=== PATIENT | female | born 1930 | race American Indian/Alaskan Native ===

== ENCOUNTER 2017-01-29 03:48 | Inpatient (IN) | payer MEDICARE, MEDICAID ==
[2017-01-29] MEDS ORDERED: HALDOL IM ONE (04:24)
--- NOTE | 2017-01-29 04:30 | Emergency Department Report ---
HPI - General Chief Complaint: Anxiety Time Seen by Provider: 01/29/17 04:24 - HPI HPI: Daughter reports that patient has been very agitated last night and the day before. Patient with history of dementia, nonverbal, G-tube dependent, has been having fevers and it has been more agitated for the past 2 nights. ED Past Medical Hx - Past Medical History Hx Hypertension: Yes Hx Asthma: No Hx Dementia: Yes Hx HIV: No - Social History Smoking Status: Unknown if ever smoked - Medications Home Medications: Home Medications Medication Instructions Recorded Confirmed Last Taken Type Digoxin [Digox] 1 tab FEEDTUBE DAILY 10/16/13 01/09/16 01/08/16 History Metoprolol [Lopressor TAB] 50 mg FEEDTUBE BID 10/16/13 01/09/16 01/08/16 History Quetiapine Fumarate [SEROquel] 25 mg FEEDTUBE DAILY 10/16/13 01/09/16 01/08/16 History Rosuvastatin (Nf) [Crestor] 1 tab FEEDTUBE DAILY 10/16/13 01/09/16 01/08/16 History amLODIPine [Norvasc] 10 mg FEEDTUBE DAILY 10/16/13 01/09/16 01/08/16 History LORazepam 0.5 mg FEEDTUBE BID 05/25/15 01/09/16 05/30/15 22:00 History Aspirin BABY CHEW TAB 81 mg PO DAILY 01/09/16 01/09/16 01/08/16 History Levothyroxine 50 meq FEEDTUBE DAILY 01/09/16 01/09/16 01/08/16 History Namenda 10 mg PO DAILY 01/09/16 01/09/16 01/08/16 History Vitamin C 1 tab FEEDTUBE DAILY 01/09/16 01/09/16 01/08/16 History ED Review of Systems ROS: Stated complaint: AMS Other details as noted in HPI Physical Exam - Physical Exam Vital Signs: Vital Signs 01/29/17 04:21 Temperature 98.5 F Pulse Rate 134 H Respiratory 43 H Rate O2 Sat by Pulse 96 Oximetry Physical Exam: General appearance: no acute distress, other (chronically ill) HEENT: PERRLA Lungs: Clear to auscultation Heart: Normal S1, Normal S2, Other (irregular rhythm) Gastrointestinal: no tenderness, no distended, no hepatomegaly, no splenomegaly , other (indwelling 20 Fr traction-removable G tube old and worn, stoma free from stigmata of leakage, drainage or infection) Neurological: Other (eyes open, no speech) ED Course Vital Signs 01/29/17 04:21 Temperature 98.5 F Pulse Rate 134 H Respiratory 43 H Rate O2 Sat by Pulse 96 Oximetry ED Medical Decision Making - Lab Data Result diagrams: 01/29/17 04:50 01/29/17 04:50 Critical care attestation.: If time is entered above; I have spent that time in minutes in the direct care of this critically ill patient, excluding procedure time. ED Disposition Clinical Impression: Aspiration pneumonia, UTI (urinary tract infection) Disposition: DC-09 OP ADMIT IP TO THIS HOSP Is pt being admited?: Yes Does the pt Need Aspirin: No Condition: Stable Instructions: Bacterial Pneumonia (ED) Referrals: PRIMARY CARE, [Primary Care Provider] - 3-5 Days
[2017-01-29] MEDS ORDERED: BENADRYL IM ONE (04:45)
[2017-01-29 05:11] LABS: Basophils % (Auto) 0.2 % (0.0-1.8); Mean Corpuscular HGB Conc 30 % (30-34); Mean Corpuscular Volume 83 fl (79-97); Platelet Count 176 K/mm3 (140-440); Red Blood Count 5.59 M/mm3 (3.65-5.03); White Blood Count 12.7 K/mm3 (4.5-11.0)
[2017-01-29 05:12] LABS: Hematocrit 46.4 % (30.3-42.9); Hemoglobin 13.7 gm/dl (10.1-14.3); Mean Corpuscular Hemoglobin 25 pg (28-32); Red Cell Distribution Width 20.7 % (13.2-15.2)
[2017-01-29 05:28] LABS: Alanine Aminotransferase 190 units/L (7-56); Albumin 3.2 g/dL (3.9-5); Albumin/Globulin Ratio 0.8 %; Alkaline Phosphatase 169 units/L (35-129); Anion Gap 26 mmol/L; BUN/Creatinine Ratio 68.33; Blood Urea Nitrogen 41 mg/dL (7-17); Calcium 9.3 mg/dL (8.4-10.2); Carbon Dioxide 20 mmol/L (22-30); Chloride 102.5 mmol/L (98-107); Glucose 245 mg/dL (65-100); Potassium 4.5 mmol/L (3.6-5.0); Sodium 144 mmol/L (137-145); Total Protein 7.4 g/dL (6.3-8.2)
[2017-01-29] MEDS ORDERED: NACL 0.9% 1000 ML 1,000 ML IV ONE (06:24)
[2017-01-29] MEDS ORDERED: ROCEPHIN IV ONE (06:24)
[2017-01-29 06:48] LABS: Bacteria,Urine 4+ /HPF (Negative); Bilirubin,Urine NEG (Negative); Blood,Urine LG (Negative); Ketones,Urine NEG (Negative); Leukocyte Esterase,Urine LG (Negative); Nitrite,Urine NEG (Negative)
[2017-01-29 06:57] LABS: Protein,Urine >500 mg/dL (Negative); RBC,Urine > 182.0 /HPF (0.0-6.0); WBC,Urine > 182.0 /HPF (0.0-6.0)
[2017-01-29] MEDS ORDERED: ROCEPHIN/NS 2 GM/100 ML 2 GM/100 ML BAG IV ONE (07:00)
[2017-01-29] MEDS ORDERED: SIMPLE SYRUP FEEDTUBE PRN ×4 (07:15→14:37)
[2017-01-29] MEDS ORDERED: SODIUM BICARBONATE FEEDTUBE PRN ×2 (07:15→14:37)
[2017-01-29] MEDS ORDERED: PANCREAZE DR 10,500 UNIT FEEDTUBE PRN ×2 (07:15→14:37)
[2017-01-29] MEDS ORDERED: DULCOLAX PR PRN (07:15)
--- NOTE | 2017-01-29 07:27 | Admit Criteria Form ---
Admission Criteria Documentation: GENERAL ADMISSION CRITERIA (Place 'X' for any and all applicable criteria): Admission is indicated for ANY ONE of the following: [X ]I. Hemodynamic instability as indicated by ANY ONE of the following(1)(2 )(3)(4)(5): [ ]a) Vital sign abnormality not readily corrected by appropriate treatment within 12 to 24 hours indicated by ANY ONE of the following: [ ]i) Hypotension [ ]ii) Symptomatic Tachycardia unresponsive to treatment (eg , analgesia, fluids, sedation as indicated) [ ]iii) Orthostatic vital sign changes unresponsive to treatment (eg, fluids) [X ]b) Vital sign abnormality that is severe indicated by ANY ONE of the following: [X ]i) Inadequate perfusion indicated by ANY ONE of the following: [ X]1) Lactic acidosis (greater than 2 mmol/L) [ ]2) New abnormal capillary refill (greater than 3 seconds) [ ]3) Other metabolic acidosis (arterial pH less than 7.35) not otherwise explained [ ]4) Reduced urine output [ ]5) Altered mental status [ ]6) Myocardial Ischemia [ ]v) Mean arterial pressure[A] less than 60 mm Hg [ ]vi) Mean arterial pressure[A] less than 70 mm Hg after 30 minutes of appropriate treatment (eg, fluid resuscitation) [ ]vii) IV inotropic or vasopressor medication required to maintain adequate blood pressure or perfusion [ ]viii) Sustained heart rate greater than 120 beats per minute in adult or child 6 years or older[B]] [ ]II. Hypertension requiring inpatient treatment as indicated by ANY ONE of the following(6)(7)(8): [ ]a) SBP greater than 220 mm Hg or DBP greater than 120 mm Hg despite treatment [ ]b) SBP greater than 140 mm Hg or DBP greater than 100 mm Hg with evidence of acute end organ damage as indicated by ANY ONE of the following: [ ]i) Encephalopathy [ ]ii) Acute renal failure as indicated by new onset of ANY ONE of the following(9)(10)(11)(12)(13): [ ]1) A 3-fold rise in serum creatinine from baseline [ ]2) Serum creatinine greater than 4 mg/dL ( 354 micromoles/L) with acute rise greater than 0.5 mg/dL (44.2 micromoles/L) [ ]3) Reduction of more than 75% in estimated glomerular filtration rate from baseline [ ]4) Estimated glomerular filtration rate less than 35 mL/min/1.73m2 (0.59 mL/sec/1.73m2) in child up to 18 years of age [ ]5) Cessation of urine output indicated by ALL of the following: [ ]A. Adequate volume status [ ]B. Inadequate urine output as indicated by ANY ONE of the following: [ ]a. Urine output less than 0.3 mL/kg/hr for 24 hours [ ]b. Anuria (urine output less than 0.1 mL/kg/hr) for 12 hours [ ]iii) Aortic dissection [ ]iv) Myocardial ischemia [ ]v) Left ventricular heart failure [ ]vi) Retinal hemorrhage [ ]vii) Other significant finding [ ]c) Hypertension in child requiring inpatient treatment as indicated by ALL of the following(14)(15)(16): [ ]i) Outpatient treatment not effective, not available, or not appropriate [ ]ii) SBP or DBP greater than 95th percentile for age [ ]iii) Evidence of acute end organ damage as indicated by ANY ONE of the following: [ ]1) Altered mental status [ ]2) Acute renal failure as indicated by new onset of ANY ONE of the following(9)(10)(11)(12)(13): [ ]A. A 3-fold rise in serum creatinine from baseline [ ]B. Serum creatinine greater than 4 mg/dL (354 micromoles/L) with acute rise greater than 0.5 mg/dL (44.2 micromoles/L) [ ]C. Reduction of more than 75% in estimated glomerular filtration rate from baseline [ ]D. Estimated glomerular filtration rate less than 35 mL/min/1.73m2 (0.59 mL/sec/1.73m2)in child up to 18 years of age [ ]E. Cessation of urine output indicated by ALL of the following: [ ]a. Adequate volume status [ ]b. Inadequate urine output as indicated by ANY ONE of the following: [ ]1) Urine output less than 0.3 mL/kg/hr for 24 hours [ ]2) Anuria (urine output less than 0.1 mL/kg/hr) for 12 hours [ ]3) Severe headache [ ]4) Visual disturbance [ ]5) Retinal hemorrhage [ ]6) Other significant finding [ ]III. Acute cardiac or peripheral ischemia as indicated by ANY ONE of the following: [ ]a) Acute coronary syndrome(17)(18) [ ]b) Acute peripheral ischemia (eg, pulseless, cool, mottled, or cyanotic extremity)(19) [ ]IV. Cardiac arrhythmias or findings of immediate concern indicated by ANY ONE of the following(20)(21): [ ]a) Heart rhythms that are inherently dangerous or unstable indicated by ANY ONE of the following(22)(23)(24): [ ]i) Resuscitated ventricular fibrillation or cardiac arrest [ ]ii) Ventricular escape rhythm [ ]iii) Sustained ventricular tachycardia (30 seconds or more of ventricular rhythm at greater than 100 beats per minute) [ ]iv) Nonsustained ventricular tachycardia and ANY ONE of the following: [ ]1) Suspected cardiac ischemia as cause or consequence of ventricular tachycardia [ ]2) In setting of acute myocarditis [ ]b) Unstable cardiac conduction defects indicated by ANY ONE of the following(24)(25)(26): [ ]i) Type II second-degree atrioventricular block [ ]ii) Third-degree atrioventricular block [ ]iii) New-onset left bundle branch block with suspected myocardial ischemia [ ]c) Any heart rhythm and ANY ONE of the following(22)(23)(27)(28)( 29): [ ] i) Continuous long-term ECG monitoring needed (eg, initiation of drug requiring monitoring for more than 24 hours) [ ] ii) Patient has automatic implanted cardioverter defibrillator that is repeatedly firing, malfunctioning, or in need of immediate adjustment of settings beyond the scope of ambulatory or observation care. [ ]d) Heart rhythms of concern due to ANY ONE of the following: [ ]i) Hypotension [ ]ii) Respiratory distress [ ]iii) Association with other significant symptoms (eg, bradycardia with syncope or ongoing dizziness, supraventricular tachycardia with chest pain) (27)(28) (30) [ ] V. Severe heart failure as indicated by ANY ONE of the following ( 31)(32): [ ]a) Respiratory distress [ ]b) Hypotension [ ]c) Anasarca (refractory to outpatient therapy) [ ]d) Cardiac arrhythmias of immediate concern [ ]e) Myocardial ischemia [ ]. Respiratory abnormalities, including ANY ONE of the following(33)(34) (35)(36): [ ]a) Respiratory rate greater than 30 breaths per minute unresponsive to treatment [A] [ ]b) New saturation of arterial oxygen less than 90% [ ]c) New partial pressure of carbon dioxide greater than 44 mm Hg ( 5.9 kPa) [ ]d) Supplemental oxygen or respiratory treatments needed that are new or not performable at other levels of care [ ]e) New-onset cyanosis [ ]f) Inability to protect airway [ ]g) Chronic lung disease with severe deterioration (not responsive to emergency and observation care treatment as appropriate) as indicated by ANY ONE of the following(34)(36 ): [ ]i) SaO2 5% below baseline in patient with chronic hypoxemia [ ]ii) New requirement for supplemental oxygen to keep SaO2 at baseline or acceptable level [ ]iii) Required supplemental oxygen performable only in acute inpatient setting [ ]iv) Severe airflow or ventilation abnormalities [ ]v) Previously mobile patient unable to walk between rooms [ ]vi Inability to eat or sleep due to dyspnea [ ]vii) Rapid rate of exacerbation onset [ ]viii) Altered mental status ]VII. Severe airflow or ventilation abnormalities (not responsive to emergency and observation care treatment as appropriate) as indicated by ANY ONE of the following(33)(34)(35)(37): [ ]a) PCO2 greater than 42 mm Hg (5.6 kPa) and pH less than 7.35 (new ) [ ]b) Documented PCO2 increased more than 5 mm Hg (0.7 kPa) from disease baseline [ ]c) Airflow measurements [B] less than 60% of previous best or predicted (eg, peak expiratory flow rate less than 300 L/minute) despite intensive emergent treatment [C] [ ]d) Required respiratory treatments that are performable only in acute inpatient setting [ ]VIII. Impending or actual respiratory arrest ( Also use Respiratory Failure GRG for severe respiratory disease and long-term mechanical ventilation patients) [ ]IX. Neurologic abnormalities, including ANY ONE of the following: [ ]a) New findings that suggest ANY ONE of the following: [ ]i) FIRE OFFICIAL infection(38) [ ]ii) Cerebral bleeding, ischemia, or vasospasm(39)(40) [ ]iii) Increased intracranial pressure, hydrocephalus, or cerebral edema(41)(42)(43) [ ]iv) Spinal cord injury(44) [ ]b) Uncontrolled seizures(45) [ ]c) New-onset coma (eg, [place] coma scale score less than 9) or unexplained abnormal mental status (eg, [place] coma scale score less than 14) [D](41)(46)(47) [ ]X. New-onset severe neurologic findings requiring inpatient care; examples include(42)(48)(49): [ ]a) Papilledema [ ]b) Cerebral edema [ ]c) Mass effect on CT scan [ ]XI. Suspected acute intra-abdominal process with peritoneal signs, abdominal mass, or similar findings (50)(51)(52) [ ]XII. Severe physiologic disorder remaining after emergency or observation level care (as appropriate) as indicated by ANY ONE of the following (53): [ ]a) Significant dehydration [ ]b) Diabetic ketoacidosis [ ]c) Hyperglycemic hyperosmolar state (eg, osmolality greater than 320 mOsm/kg (mmol/kg) [ ]d) Hypoglycemia [ ]e) Other (new) acid-base disorder with pH less than 7.35 or greater than 7.5(54) [ ]f) Thyroid storm (55) [ ]g) Myxedema coma (55) [ ]XIII. Abdominal abnormalities with ANY ONE of the following(56)(57): [ ]a) Absent bowel sounds with complete ileus [ ]b) Signs of intestinal obstruction or peritonitis [E] [ ]c) Nausea and vomiting that cannot be controlled with outpatient or observation care [ ]XIV. Acute renal failure as indicated by new onset of ANY ONE of the following(9)(10)(11)(12)(13): [ ]a) A 3-fold rise in serum creatinine from baseline [ ]b) Serum creatinine greater than 4 mg/dL (354 micromoles/L) with acute rise greater than 0.5 mg/dL (44.2 micromoles/L) [ ]c) Reduction of more than 75% in estimated glomerular filtration rate from baseline [ ]d) Estimated glomerular filtration rate less than 35 mL/min/ 1.73m2 (0.59 mL/sec/1.73m2) in child up to 18 years of age [ ]e) Cessation of urine output indicated by ALL of the following: [ ]i) Adequate volume status [ ]ii) Inadequate urine output as indicated by ANY ONE of the following: [ ]1) Urine output less than 0.3 mL/kg/hr for 24 hours [ ]2) Anuria (urine output less than 0.1 mL/kg/hr) for 12 hours [ ]XV. Significant uremic complications as indicated by ANY ONE of the following(58)(59)(60): [ ]a) Outpatient therapy is ineffective or not feasible for ANY ONE of the following: [ ]i) Severe heart failure [ ]ii) Severehypertension [ ]iii) Pleural effusion [ ]iv) Pericarditis or pericardial effusion [ ]b) Cardiac arrhythmias of immediate concern [ ]c) Intractable nausea or vomiting [ ]d) Recurrent seizures [ ]e) Encephalopathy [ ]f) Bleeding abnormalities (eg, platelet dysfunction) with active (eg, gastrointestinal) bleeding [ ]g) Dialysis indicated before long-term access or ambulatory arrangements can be made [ ]h) Significant metabolic or electrolyte abnormalities (eg, severe acidosis or hyperkalemia) [ ]XVI. High fever or other high-risk infection situation as indicated by ANY ONE of the following(61)(62)(63)(64): [ ]a) Outpatient and observation care antimicrobial treatment unavailable, not effective, or not appropriate [ ]b) Documented bacteremia [ ]c) Temperature greater than 40.5 degrees C (104.9 degrees F) ( oral) [ ]d) Temperature greater than 39.5 degrees C (103.1 degrees F) ( oral) or less than 36 degrees C (96.8 degrees F) (rectal) that does not respond to e treatment and observation care [ ] XVII. Temperature less than 95 degrees F (35 degrees C)(rectal)(65) [ ] XVIII. Severe nutritional abnormalities as indicated by ALL of the following (66)(67): [ ]a) Inability to tolerate or establish sufficient oral or other enteral nutrition in outpatient setting [ ]b) Parenteral nutrition regimen need that must be implemented on inpatient basis [ ] XIX. Severe electrolyte abnormalities indicated by ALL of the following(68) (69)(70): [ ]a) Electrolytes and associated findings are not as expected for patient baseline or acceptable treatment effects. [ ]b) Severe abnormalities indicated by ANY ONE of the following: [ ]i) Sodium less than 130 mEq/L (mmol/L) (new) [ ]ii)Sodium less than 135 mEq/L (mmol/L) with ANY ONE of the following: [ ]1) Uncorrectable (to near normal or chronic baseline) after trial of outpatient and emergency treatment [ ]2) Altered mental status [ ]3) Seizures [ ]4) Severe medical etiology requiring inpatient management (eg, heart failure, hypovolemia) [ ]iii) Sodium greater than 155 mEq/L (mmol/L) [ ]iv) Sodium greater than 150 mEq/L (mmol/L) with ANY ONE of the following: [ ]1) Uncorrectable (to near normal or chronic baseline) with outpatient and emergency treatment [ ]2) Altered mental status [ ]3) Seizures [ ]4) Severe medical etiology (eg, hypovolemia, diabetes insipidus) [ ]v) Potassium less than 2.5 mEq/L (mmol/L) despite outpatient and emergency treatment [ ]vi) Potassium less than 3 mEq/L (mmol/L) with ANY ONE of the following: [ ]1) Weakness [ ]2) Cardiac abnormality (eg, arrhythmia, conduction disturbance) [ ]3) Cardiac ischemia [ ]4) Ileus [ ]5) Ongoing medical cause requiring inpatient management (eg, acute renal wasting or SIADH) [ ]6) Other severe symptoms [ ]vii) Potassium greater than 6.5 mEq/L (mmol/L) [ ]viii) Potassium greater than 5 mEq/L (mmol/L) with ANY ONE of the following: [ ]1) Uncorrectable (to near normal or chronic baseline) with outpatient and emergency treatment [ ]2) Severe ECG findings [F] [ ]3) Acute worsening of renal failure (creatinine greater than 2.5 mg/dL (221 micromoles/L) or significant elevation for age and size) [ ]4) Severe weakness [ ]5) Severe medical etiology (eg, hemolysis, infection, drug overdose) [ ]ix) Calcium less than 7 mg/dL (1.75 mmol/L) despite outpatient and emergency treatment (72) [ ]x) Calcium less than 8 mg/dL (2 mmol/L) with significant symptoms or findings; examples include(72): [ ]1) Altered mental status [ ]2) Muscle spasms [ ]3) Seizures [ ]4) Breathing difficulty [ ]5) Cardiac abnormality (eg, arrhythmia or conduction disturbance) [ ]xi) Calcium greater than 14 mg/dL (3.5 mmol/L)(72) [ ]xii) Calcium greater than 12 mg/dL (3 mmol/L) with ANY ONE of the following(72): [ ]1) Uncorrectable (to near normal or chronic baseline) with outpatient and emergency treatment [ ]2) Significant dehydration or hypovolemia as indicated by ALL of the following(70)(73)(74): [ ]A. Not resolved with initial treatments [ ]B. Clinically significant dehydration as indicated by ANY ONE of the following: [ ]a. Vomiting refractory to outpatient treatment (ie, precluding oral rehydration) [ ]b. Inability to drink [ ]c. Hypernatremia or other electrolyte abnormality unable to be corrected with outpatient and emergency treatment [ ]d. Failure to remain hydrated with outpatient therapy [ ]e. Reduced urine output [ ]f. Hypotension [ ]g. Serious cause for dehydration requiring acute hospitalization (eg, bowel obstruction, increased intracranial pressure, infectious cause) [ ]h. Child with ANY ONE of the following(75): [ ]1) Severe abdominal tenderness [ ]2) Adequate care not available at home [ ]3) Severe dehydration ( greater than 9% loss of body weight) [ ]4) Significant symptoms or findings; examples include: [ ]A. Altered mental status [ ]B. Cardiac abnormality (eg, arrhythmia, conduction disturbance) [ ]C. Malignant etiology requiring inpatient treatment [ ]xiii) Phosphorus less than 1 mg/dL (0.32 mmol/L) [ ]xiv) Phosphorus less than 1.5 mg/dL (0.48 mmol/L) with ANY ONE of the following: [ ]1) Patient unresponsive to outpatient and emergency treatment [ ]2) Significant symptoms or findings; examples include: [ ]A. Weakness [ ]B. Altered mental status [ ]C. Breathing difficulty [ ]D. Seizures [ ]E. Rhabdomyolysis [ ]xv) Phosphorus greater than 10 mg/dL (3.2 mmol/L) [ ]xvi) Phosphorus greater than 4.5 mg/dL (1.45 mmol/L) (new) with ANY ONE of the following: [ ]1) Severe medical etiology (eg, crush injury, acute renal failure) [ ]2) Associated hypocalcemia with significant findings; examples include: [ ]A. Neurologic symptoms [ ]B. Altered mental status [ ]C. Muscle spasms [ ]D. Seizures [ ]E. Breathing difficulty [ ]F. Cardiac abnormality (eg, arrhythmia, conduction disturbance) [ ]xvii) Magnesium less than 1 mg/dL (0.41 mmol/L) [ ]xviii) Magnesium less than 1.5 mg/dL (0.62 mmol/L) with ANY ONE of the following: [ ]1) Patient unresponsive to outpatient and emergency treatment [ ]2) Associated hypocalcemia with significant findings; examples include: [ ]A. Altered mental status [ ]B. Muscle spasms [ ]C. Seizures [ ]D. Breathing difficulty [ ]E. Cardiac abnormality (eg, arrhythmia , conduction disturbance) [ ]3) Associated hypokalemia (potassium less than 3 mEq/L (mmol/L)) with risk of arrhythmia [ ]xix) Magnesium greater than 4 mEq/L (2 mmol/L) [ ]xx) Magnesium greater than 2.5 mEq/L (1.25 mmol/L) with significant symptoms or findings; examples include: [ ]1) Weakness [ ]2) Altered mental status [ ]3) Cardiac abnormality (eg, arrhythmia, conduction disturbance) [ ]4) Breathing difficulty [ ]5) Severe medical etiology (eg, renal failure, hypovolemia) [ ]xxi) Uric acid greater than 20 mg/dL (1190 micromoles/L)(76) [ ]xxii) Uric acid greater than 8 mg/dL (476 micromoles/L) with significant symptoms or findings of tumor lysis syndrome; examples include(76): [ ]1) Creatinine greater than 1.5 times upper limit of normal [ ]2) Cardiac abnormality (eg, arrhythmia, conduction disturbance) [ ]3) Seizure [ ]XX. Acute blood loss causing significant abnormality as indicated by ANY ONE of the following(77)(78): [ ]a) Hemoglobin less than 10 g/dL (100 g/L) (not baseline) [ ]b) Hematocrit less than 30% (0.30) (not baseline) [ ]c) Repeat hematocrit decreased more than 2% (0.02) [ ]d) Uncontrolled bleeding [ ]XXI. Severe anemia indicated by ANY ONE of the following(78)(79): [ ]a) Altered mental status [ ]b) Chest pain [ ]c) Exertional dyspnea [ ]d) Syncope [ ]e) Other findings suggesting inadequate perfusion [ ]f) Treatment with transfusion or volume replacement is ineffective at resolving ANY ONE of the following [G]: [ ]i) Tachycardia for age [ ]ii) Orthostatic vital sign changes as indicated by ANY ONE of the following(80): [ ]1) Fall in SBP of 20 mm Hg or more 1 to 3 minutes after patient sits or stands from recumbent position [ ]2) Fall in DBP of 10 mm Hg or more 1 to 3 minutes after patient sits or stands from recumbent position [ ]XXII. High-risk low platelet count as indicated by ANY ONE of the following( 81)(82): [ ]a) Severe or life-threatening bleeding (eg, intracranial, major gastrointestinal, or extensive mucosal bleeding), with any reduced platelet count [ ]b) Platelet count less than 20,000/mm3 (20 x109/L) with any active bleeding [ ]c) Platelet count less than 10,000/mm3 (10 x109/L) with minor purpura or petechiae [ ]d) Platelet count less than 5000/mm3 (5 x109/L) [ ]e) Low platelet count with hemolytic anemia [ ]XXIII. Disseminated intravascular coagulation(77)(83) [ ]XXIV. Severe adverse drug or systemic toxin reaction requiring inpatient treatment; examples include(84)(85): [ ]a) Serotonin syndrome(86) [ ]b) Neuroleptic malignant syndrome(86) [ ]c) Cholinergic syndrome with severe symptoms (eg, bronchorrhea, weakness, mental status changes, seizures) [ ]d) Sympathetic syndrome with severe symptoms (eg, seizures, mental status changes, cardiac dysrhythmias) [ ]e) Anticholinergic syndrome [ ]XXV. Severe pain requiring acute inpatient management as indicated by ALL of the following (87)(88)(89): [ ]a) Continuous or frequent (eg, every 2 to 4 hours) parenteral analgesics required [H] [ ]b) Rapid improvement expected from treatment or acute intervention (eg, surgery, anesthesia procedure) [ ]XXVI.Severe behavioral health issues judged unmanageable at a lower level of care (eg, residential) in a patient who is ANY ONE of the following(91) [ ]a) Acutely suicidal [ ]b) A danger to self (eg, self-mutilating or suicidal behavior) [ ]c) A danger to others (eg, assaultive or homicidal behavior) [ ]d) Incapacitated because of grave disability (eg, inability to provide for self at lower level of care) (92) [ ]XXVII. Inpatient monitoring needed; examples include(1)(3)(87)(93)(94)(95)(96 ): [ ]a) Vital signs, neurologic signs, or vascular checks more frequently than every 4 hours [ ]b) Cardiac or respiratory monitoring beyond the scope (eg, over 24 hours) of observation care [ ]c) Pulmonary artery catheter monitoring [ ]d) Suspected compartment syndrome(97) (98) [ ]e) Cerebral bleeding, hydrocephalus, or vasospasm monitoring [ ]f) Increased intracranial pressure or cerebral edema monitoring [ ]g) monitoring [ ]XXVIII. Treatment requiring inpatient care; examples include: [ ]a) IV fluid to replace significant ongoing losses (greater than 3 L/m2 per day)(53) [ ]b) High concentration oxygen (greater than 40%)(33)(99)(100) [ ]c) Frequent respiratory therapy (more frequently than every 4 hours) to maintain airflow rates greater than 60% of baseline(33)(99)(100) [ ]d) Epidural analgesia(87) [ ]e) IV anticoagulation, vasoactive, or antiarrhythmic medication(19 )(23) [ ]f) Acute thrombolytics (generally require 24 hours of observation )(101)(102) [ ]XXIX. Emergency procedures needed; examples include: [ ]a) Emergency inpatient surgery [ ]b) Temporary pacemaker placement(103) [ ]c) Chest tube placement with active evacuation (eg, suction, drainage)(104) [ ]d) Emergent cardioversion(105) [ ]e) Emergent cardiac or vascular procedures (eg, cardiac catheterization, angioplasty) (17)(18) [ ]f) Emergent dialysis access placement and institution(10)(106) [ ]g) Emergent pericardiocentesis(107) [ ]h) Emergent plasmapheresis or leukapheresis(83) [ ]i) Emergent tracheostomy The original [employer] content created by [employer] has been revised. The portions of the content which have been revised are identified through the use of italic text or in bold, and [employer] has neither reviewed nor approved the modified material. All other unmodified content is copyright [employer]. Please see references footnoted in the original [employer] edition 2016 Admission Criteria Met: Yes
--- NOTE | 2017-01-29 07:44 | XRay Report ---
AP CHEST: HISTORY: chest pain No recent comparison. There is mild cardiomegaly and mild central pulmonary venous congestion. The lungs are generally clear. No consolidation, large pleural effusion or pneumothorax is detected. The bony structures are mildly demineralized. IMPRESSION: Mild cardiomegaly and pulmonary venous congestion but no CHF.
--- NOTE | 2017-01-29 07:55 | History and Physical Report ---
<IMANI JEWELL - Last Filed: 01/29/17 12:08> History of Present Illness Date of examination: 01/29/17 Date of admission: 01/29/2017 Chief complaint: Altered mental status History of present illness: Patient is a 86 years old Erika Marshallese female with past medical history of dementia hypertension, hyperlipidemia, diabetes mellitus, A. fib and Peg tube Placement, who present to the emergency department with altered mental status. Patient very lethargic, and altered mental status therefore unable to obtain history. Per chart, daughter reports patient subjective fevers and has been agitated for the past 2 days. History obtained from ER physician and charts. Past History Past Medical History: diabetes, hypertension, hyperlipidemia, other (PEG placement, A-FIB) Past Surgical History: Other (unable to assess) Social history: other (unable to assess) Family history: other (unable to assess) Medications and Allergies Allergies Allergy/AdvReac Type Severity Reaction Status Date / Time Iodinated Contrast Media - Allergy Itching Verified 05/25/15 11:08 IV Dye Home Medications Medication Instructions Recorded Confirmed Last Taken Type Metoprolol [Lopressor TAB] 50 mg FEEDTUBE BID 10/16/13 01/29/17 01/28/17 History Quetiapine Fumarate [SEROquel] 25 mg FEEDTUBE DAILY 10/16/13 01/29/17 01/28/17 History Rosuvastatin (Nf) [Crestor] 1 tab FEEDTUBE DAILY 10/16/13 01/29/17 01/28/17 History amLODIPine [Norvasc] 10 mg FEEDTUBE DAILY 10/16/13 01/29/17 01/28/17 History Aspirin BABY CHEW TAB 81 mg PO DAILY 01/09/16 01/29/17 01/28/17 History Levothyroxine 50 meq FEEDTUBE DAILY 01/09/16 01/29/17 01/28/17 History Active Meds: Active Medications Amlodipine Besylate (Norvasc) 10 mg FEEDTUBE DAILY [facility] Lipase/Protease/Amylase ([address] 10,500 Unit) 1 each FEEDTUBE PRN PRN PRN Reason: For Clogged Feeding Tube Ascorbic Acid (Vitamin C) 500 mg FEEDTUBE QDAY [facility] Aspirin (Baby Aspirin) 81 mg PO QDAY [facility] Bisacodyl (Dulcolax) 10 mg ID QDAY PRN PRN Reason: constipation unrelieved by MOM Digoxin (Lanoxin) 0.125 mg FEEDTUBE DAILY [facility] Ceftriaxone Sodium (Rocephin/Ns 1 Gm/50 Ml) 1 gm in 50 mls @ 100 mls/hr IV Q24HR [facility] PRN Reason: Protocol Metoprolol Tartrate (Lopressor) 50 mg FEEDTUBE BID [facility] Miscellaneous Medication (Namenda) 10 mg PO DAILY [facility] Miscellaneous Medication (Rosuvastatin (Nf)) 1 tab FEEDTUBE DAILY [facility] Quetiapine Fumarate (Seroquel) 25 mg FEEDTUBE DAILY [facility] Simple Syrup (Simple Syrup) 15 ml FEEDTUBE PRN PRN PRN Reason: Hypoglycemia Simple Syrup (Simple Syrup) 30 ml FEEDTUBE PRN PRN PRN Reason: Hypoglycemia Sodium Bicarbonate (Sodium Bicarbonate) 325 mg FEEDTUBE PRN PRN PRN Reason: For Clogged Feeding Tube Review of Systems ROS unobtainable: due to mental status (unable to assess due to patient mental status ) Exam - Constitutional Vitals: Temp Pulse Resp BP Pulse Ox 98.5 F 133 H 46 H 104/85 77 L 01/29/17 04:21 01/29/17 06:41 01/29/17 06:41 01/29/17 06:41 01/29/17 06:41 General appearance: Present: mild distress, other (AMS, open eyes and looking around and non verbal.) - EENT Eyes: Present: PERRL ENT: hearing intact, clear oral mucosa - Neck Neck: Present: supple - Respiratory Respiratory effort: normal Respiratory: bilateral: diminished - Cardiovascular Rhythm: irregularly irregular Heart Sounds: Present: S1 & S2 - Extremities Extremity abnormal: pulses diminished (right lower extremity colder thatn left side and no palpable pulses) Peripheral Pulses: abnormal - Abdominal General gastrointestinal: Present: soft, non-tender, other (Peg Tube) Female genitourinary: Present: deferred - Rectal Rectal Exam: deferred - Integumentary Integumentary: Present: clear, warm - Musculoskeletal Musculoskeletal: strength equal bilaterally - Psychiatric Psychiatric: other ( open eyes and looking around and non verbal.) - Neurologic Neurologic: moves all extremities - Allied Health Allied health notes reviewed: nursing Results - Labs CBC & Chem 7: 01/29/17 04:50 01/29/17 04:50 Labs: Laboratory Last Values WBC 12.7 K/mm3 (4.5-11.0) H 01/29/17 04:50 RBC 5.59 M/mm3 (3.65-5.03) H 01/29/17 04:50 Hgb 13.7 gm/dl (10.1-14.3) 01/29/17 04:50 Hct 46.4 % (30.3-42.9) H 01/29/17 04:50 MCV 83 fl (79-97) 01/29/17 04:50 MCH 25 pg (28-32) L 01/29/17 04:50 MCHC 30 % (30-34) 01/29/17 04:50 RDW 20.7 % (13.2-15.2) H 01/29/17 04:50 Plt Count 176 K/mm3 (140-440) 01/29/17 04:50 Lymph % (Auto) 5.6 % (13.4-35.0) L 01/29/17 04:50 Patrick % (Auto) 9.7 % (0.0-7.3) H 01/29/17 04:50 Eos % (Auto) 0.0 % (0.0-4.3) 01/29/17 04:50 Baso % (Auto) 0.2 % (0.0-1.8) 01/29/17 04:50 Lymph # 0.7 K/mm3 (1.2-5.4) L 01/29/17 04:50 Patrick # 1.2 K/mm3 (0.0-0.8) H 01/29/17 04:50 Eos # 0.0 K/mm3 (0.0-0.4) 01/29/17 04:50 Baso # 0.0 K/mm3 (0.0-0.1) 01/29/17 04:50 Seg Neutrophils % 84.5 % (40.0-70.0) H 01/29/17 04:50 Seg Neutrophils # 10.7 K/mm3 (1.8-7.7) H 01/29/17 04:50 Sodium 144 mmol/L (137-145) 01/29/17 04:50 Potassium 4.5 mmol/L (3.6-5.0) 01/29/17 04:50 Chloride 102.5 mmol/L (98-107) 01/29/17 04:50 Carbon Dioxide 20 mmol/L (22-30) L 01/29/17 04:50 Anion Gap 26 mmol/L 01/29/17 04:50 BUN 41 mg/dL (7-17) H 01/29/17 04:50 Creatinine 0.6 mg/dL (0.7-1.2) L 01/29/17 04:50 Estimated GFR > 60 ml/min 01/29/17 04:50 BUN/Creatinine Ratio 68.33 % 01/29/17 04:50 Glucose 245 mg/dL (65-100) H 01/29/17 04:50 Lactic Acid 4.00 mmol/L (0.7-2.0) H* 01/29/17 07:05 Calcium 9.3 mg/dL (8.4-10.2) 01/29/17 04:50 Total Bilirubin 0.90 mg/dL (0.1-1.2) 01/29/17 04:50 AST 122 units/L (5-40) H 01/29/17 04:50 ALT 190 units/L (7-56) H 01/29/17 04:50 Alkaline Phosphatase 169 units/L (35-129) H 01/29/17 04:50 NT-Pro-B Natriuret Pep 64817 pg/mL (0-900) H 01/29/17 07:05 Total Protein 7.4 g/dL (6.3-8.2) 01/29/17 04:50 Albumin 3.2 g/dL (3.9-5) L 01/29/17 04:50 Albumin/Globulin Ratio 0.8 % 01/29/17 04:50 Urine Color Red (Yellow) 01/29/17 06:24 Urine Turbidity Cloudy (Clear) 01/29/17 06:24 Urine pH 5.0 (5.0-7.0) 01/29/17 06:24 Ur Specific Aldrich 1.016 (1.003-1.030) 01/29/17 06:24 Urine Protein >500 mg/dL (Negative) 01/29/17 06:24 Urine Glucose (UA) Neg mg/dL (Negative) 01/29/17 06:24 Urine Ketones Neg mg/dL (Negative) 01/29/17 06:24 Urine Blood Lg (Negative) 01/29/17 06:24 Urine Nitrite Neg (Negative) 01/29/17 06:24 Urine Bilirubin Neg (Negative) 01/29/17 06:24 Urine Urobilinogen 2.0 mg/dL (<2.0) 01/29/17 06:24 Ur Leukocyte Esterase Lg (Negative) 01/29/17 06:24 Urine WBC (Auto) > 182.0 /HPF (0.0-6.0) H 01/29/17 06:24 Urine RBC (Auto) > 182.0 /HPF (0.0-6.0) 01/29/17 06:24 U Epithel Cells (Auto) 3.0 /HPF (0-13.0) 01/29/17 06:24 Urine Bacteria (Auto) 4+ /HPF (Negative) 01/29/17 06:24 Urine WBC Clumps 3+ /HPF 01/29/17 06:24 Urine Yeast (Budding) Few /HPF 01/29/17 06:24 - Imaging and Cardiology Chest x-ray: image reviewed (mild cardiomegaly & pulmonary venous congestion but no CHF) Assessment and Plan Assessment and plan: Patient is a 86 years sold Erika Marshallese female with past medical history of dementia hypertension, hyperlipidemia, diabetes mellitus, A. fib and Peg tube Placement, who present to the emergency department with altered mental status. Patient have found that septic secondary to UTI, Leukocytosis, acute respiratory failure,A-fib with RVR, liver transaminitis and hyperglycemic. PLAN Acute metabolic encephalopathy Most likely this is patients baseline VS due to Sepsis treat the underline cause Supportive care Suspected peritonitis Abdomen ultrasound ordered Urine and blood Cultures collected Started on empiric antibiotic treatment IV Rocephin Nothing by mouth IV fluid hydration Supportive care. Sepsis secondary to urinary tract infection. Urine and blood Cultures collected IV fluid resuscitation Started on IV Rocephin Ischemic right lower extremity VL LE venous Doppler ordered Vascular consulted Acute respiratory failure Started on Duoneb TID due to patients Oxygen supplement ABG as needed Supportive care Lactic acidosis Most likely due to sepsis We will repeat lactic acidosis Arterial fibrillation with RVR Admit to [facility] [employer] PT/INR Cardiology consulted Liver transaminitis Check ammonia level and PT/INR GI consulted Uncontrolled diabetes mellitus Nothing by mouth Accu-Chek every 6 hours Sliding scale insulin/NovoLog Nutrition consulted Suspected aspiration pneumonitis Blood culture collected started on IV antibiotic Congestive heart failure Elevated BNP Chest x-ray revealed mild cardiomegaly & pulmonary venous congestion but no CHF Echocardiogram ordered Cardiology consulted PEG tube Recent peg-tube placement GI consulted DVT prophylaxis Heparin Advance Directives: Yes VTE prophylaxis?: Chemical Contraindication Mechanical VTE Prophylaxis: Treatment Not Indicated Plan of care discussed with patient/family: Yes <JORGE MONTEJO R - Last Filed: 01/29/17 12:15> History of Present Illness Date of admission: 01/29/17 08:13 Medications and Allergies Active Meds: Active Medications Lipase/Protease/Amylase (Pancreaze Dr 10,500 Unit) 1 each FEEDTUBE PRN PRN PRN Reason: For Clogged Feeding Tube Ascorbic Acid (Vitamin C) 500 mg FEEDTUBE QDAY [facility] Aspirin (Baby Aspirin) 81 mg FEEDTUBE QDAY [facility] Last Admin: 01/29/17 11:30 Dose: 81 mg Bisacodyl (Dulcolax) 10 mg ID QDAY PRN PRN Reason: constipation unrelieved by MOM Dextrose (D50w (25gm)) 50 ml IV PRN PRN PRN Reason: Hypoglycemia Digoxin (Lanoxin) 0.125 mg FEEDTUBE DAILY [facility] Heparin Sodium (Porcine) (Heparin) 5,000 unit SUB-Q Q12HR [facility] Sodium Chloride (Nacl 0.9% 1000 Ml) 1,000 mls @ 75 mls/hr IV DIRECT [facility] Last Admin: 01/29/17 11:20 Dose: 75 mls/hr Ceftriaxone Sodium (Rocephin/Ns 1 Gm/50 Ml) 1 gm in 50 mls @ 100 mls/hr IV Q24HR [facility] PRN Reason: Protocol Insulin Aspart (Novolog) 0 units SUB-Q Q6HR [facility] PRN Reason: Protocol Memantine (Namenda (Nf)) 10 mg FEEDTUBE DAILY [facility] Metoprolol Tartrate (Lopressor) 50 mg FEEDTUBE BID [facility] Last Admin: 01/29/17 11:28 Dose: 50 mg Quetiapine Fumarate (Seroquel) 25 mg FEEDTUBE DAILY [facility] Last Admin: 01/29/17 11:29 Dose: 25 mg Simple Syrup (Simple Syrup) 15 ml FEEDTUBE PRN PRN PRN Reason: Hypoglycemia Simple Syrup (Simple Syrup) 30 ml FEEDTUBE PRN PRN PRN Reason: Hypoglycemia Sodium Bicarbonate (Sodium Bicarbonate) 325 mg FEEDTUBE PRN PRN PRN Reason: For Clogged Feeding Tube Exam - Constitutional Vitals: Temp Pulse Resp BP Pulse Ox 98.4 F 116 H 20 144/100 100 01/29/17 11:28 01/29/17 11:28 01/29/17 11:28 01/29/17 11:28 01/29/17 11:28 Results - Labs CBC & Chem 7: 01/29/17 04:50 01/29/17 04:50 Labs: Laboratory Last Values WBC 12.7 K/mm3 (4.5-11.0) H 01/29/17 04:50 RBC 5.59 M/mm3 (3.65-5.03) H 01/29/17 04:50 Hgb 13.7 gm/dl (10.1-14.3) 01/29/17 04:50 Hct 46.4 % (30.3-42.9) H 01/29/17 04:50 MCV 83 fl (79-97) 01/29/17 04:50 MCH 25 pg (28-32) L 01/29/17 04:50 MCHC 30 % (30-34) 01/29/17 04:50 RDW 20.7 % (13.2-15.2) H 01/29/17 04:50 Plt Count 176 K/mm3 (140-440) 01/29/17 04:50 Lymph % (Auto) 5.6 % (13.4-35.0) L 01/29/17 04:50 Patrick % (Auto) 9.7 % (0.0-7.3) H 01/29/17 04:50 Eos % (Auto) 0.0 % (0.0-4.3) 01/29/17 04:50 Baso % (Auto) 0.2 % (0.0-1.8) 01/29/17 04:50 Lymph # 0.7 K/mm3 (1.2-5.4) L 01/29/17 04:50 Patrick # 1.2 K/mm3 (0.0-0.8) H 01/29/17 04:50 Eos # 0.0 K/mm3 (0.0-0.4) 01/29/17 04:50 Baso # 0.0 K/mm3 (0.0-0.1) 01/29/17 04:50 Seg Neutrophils % 84.5 % (40.0-70.0) H 01/29/17 04:50 Seg Neutrophils # 10.7 K/mm3 (1.8-7.7) H 01/29/17 04:50 PT 15.2 Sec. (12.2-14.9) H 01/29/17 10:14 INR 1.21 (0.87-1.13) H 01/29/17 10:14 APTT 28.0 Sec. (24.2-36.6) 01/29/17 10:14 POC ABG pH 7.387 (7.35-7.45) 01/29/17 08:47 POC ABG pCO2 52.5 (35-45) H 01/29/17 08:47 POC ABG pO2 121 (80-105) H 01/29/17 08:47 POC ABG HCO3 31.5 01/29/17 08:47 POC ABG Total CO2 33 01/29/17 08:47 POC ABG O2 Sat 99 01/29/17 08:47 POC ABG Base Excess 6 01/29/17 08:47 FiO2 30 % 01/29/17 08:47 Sodium 144 mmol/L (137-145) 01/29/17 04:50 Potassium 4.5 mmol/L (3.6-5.0) 01/29/17 04:50 Chloride 102.5 mmol/L (98-107) 01/29/17 04:50 Carbon Dioxide 20 mmol/L (22-30) L 01/29/17 04:50 Anion Gap 26 mmol/L 01/29/17 04:50 BUN 41 mg/dL (7-17) H 01/29/17 04:50 Creatinine 0.6 mg/dL (0.7-1.2) L 01/29/17 04:50 Estimated GFR > 60 ml/min 01/29/17 04:50 BUN/Creatinine Ratio 68.33 % 01/29/17 04:50 Glucose 245 mg/dL (65-100) H 01/29/17 04:50 Lactic Acid 2.70 mmol/L (0.7-2.0) H* 01/29/17 07:56 Calcium 9.3 mg/dL (8.4-10.2) 01/29/17 04:50 Total Bilirubin 0.90 mg/dL (0.1-1.2) 01/29/17 04:50 AST 122 units/L (5-40) H 01/29/17 04:50 ALT 190 units/L (7-56) H 01/29/17 04:50 Alkaline Phosphatase 169 units/L (35-129) H 01/29/17 04:50 NT-Pro-B Natriuret Pep 16455 pg/mL (0-900) H 01/29/17 07:05 Total Protein 7.4 g/dL (6.3-8.2) 01/29/17 04:50 Albumin 3.2 g/dL (3.9-5) L 01/29/17 04:50 Albumin/Globulin Ratio 0.8 % 01/29/17 04:50 Urine Color Red (Yellow) 01/29/17 06:24 Urine Turbidity Cloudy (Clear) 01/29/17 06:24 Urine pH 5.0 (5.0-7.0) 01/29/17 06:24 Ur Specific Aldrich 1.016 (1.003-1.030) 01/29/17 06:24 Urine Protein >500 mg/dL (Negative) 01/29/17 06:24 Urine Glucose (UA) Neg mg/dL (Negative) 01/29/17 06:24 Urine Ketones Neg mg/dL (Negative) 01/29/17 06:24 Urine Blood Lg (Negative) 01/29/17 06:24 Urine Nitrite Neg (Negative) 01/29/17 06:24 Urine Bilirubin Neg (Negative) 01/29/17 06:24 Urine Urobilinogen 2.0 mg/dL (<2.0) 01/29/17 06:24 Ur Leukocyte Esterase Lg (Negative) 01/29/17 06:24 Urine WBC (Auto) > 182.0 /HPF (0.0-6.0) H 01/29/17 06:24 Urine RBC (Auto) > 182.0 /HPF (0.0-6.0) 01/29/17 06:24 U Epithel Cells (Auto) 3.0 /HPF (0-13.0) 01/29/17 06:24 Urine Bacteria (Auto) 4+ /HPF (Negative) 01/29/17 06:24 Urine WBC Clumps 3+ /HPF 01/29/17 06:24 Urine Yeast (Budding) Few /HPF 01/29/17 06:24 Digoxin 0.4 ng/mL (0.9-2.0) L 01/29/17 09:25 Assessment and Plan Assessment and plan: I have personally seen and examined the patient. I reviewed the Nurse Practitioner's note and agree with the assessment and plan with the following additions/corrections: Patient has of plethora of serious active medical problems, the most serious being sepsis, acute hypoxic respiratory failure, encephalopathy and ischemic right leg. I spoke with vascular surgeon AMBERLY, he ordered stat arterial duplex and will consider starting heparin drip. I'll ordered a digoxin level with atrial fibrillation with RVR, review of our electronic medical records doesn't give a reason while she is NOT on anticoagulation. She looks malnourished, chronically debilitated and maybe this is reason for no anticoagulation, Unable to reach daughter Condition is guarded, serious but stable, HR improved. The high probability of a clinically significant, sudden or life threatening deterioration of the [neurologic,cardiac] system(s) required my full and direct attention, intervention and personal management. The aggregate critical care time was [46] minutes. This time is in addition to time spent performing reported procedures but includes the following: [x] Data Review and interpretation [x] Patient assessment and monitoring of vital signs [x] Documentation [x] Medication orders and management
[2017-01-29 08:56] LABS: ISTAT Base Excess 6; ISTAT HCO3 31.5; ISTAT PCO2 52.5 (35-45); ISTAT PH 7.387 (7.35-7.45); ISTAT PO2 121 (80-105); ISTAT SO2 99; ISTAT TCO2 33
[2017-01-29] MEDS ORDERED: D50W (25GM) Syringe IV PRN (09:07)
[2017-01-29] MEDS ORDERED: NAMENDA 10 MG PO SCH (10:00)
[2017-01-29] MEDS ORDERED: LOPRESSOR FEEDTUBE SCH ×2 (10:00→20:00)
[2017-01-29] MEDS ORDERED: ROCEPHIN/NS 1 GM/50 ML 1 GM/50 ML BAG IV SCH (10:00)
[2017-01-29] MEDS ORDERED: NORVASC FEEDTUBE SCH (10:00)
[2017-01-29] MEDS ORDERED: BABY ASPIRIN PO SCH (10:00)
[2017-01-29] MEDS ORDERED: ROSUVASTATIN FEEDTUBE SCH (10:00)
[2017-01-29] MEDS ORDERED: NACL 0.9% 1000 ML 1,000 ML IV SCH (10:00)
[2017-01-29 10:35] LABS: INR 1.21 (0.87-1.13)
[2017-01-29] MEDS: NACL 0.9% 1000 ML 1,000 ML IV SCH (11:20)
[2017-01-29] MEDS: BABY ASPIRIN FEEDTUBE SCH (11:30)
[2017-01-29] MEDS: LANOXIN FEEDTUBE SCH (12:12)
[2017-01-29] MEDS: VITAMIN C FEEDTUBE SCH (12:14)
[2017-01-29] MEDS: NAMENDA FEEDTUBE SCH (12:16)
--- NOTE | 2017-01-29 15:00 | Consultation ---
History of Present Illness Consult date: 01/29/17 Requesting physician: JORGE MONTEJO Consult reason: atrial fibrillation History of present illness: Patient is a 86 years old Erika [place] female with past medical history significant for chronic atrial fibrillation (no AC d/t fall risk and advanced dementia), heart failure, HTN, hypothyroidism, dementia, s/p PEG tube. She is regularly followed by [facility]. Pt is nonverbal due to advanced dementia and thus HPI is obtained per the chart and per pt's daughter at bedside. Pt presented with c/o increased agitation and fever x 2 days [employer]. Following admission, pt was found to have UTI, lactic acidosis, leukocytosis, elevated pro-BNP, suspected aspiration pneumonitis, transaminitis, uncontrolled DM, and suspected RLE ischemia. CXR shows mild cardiomegaly and pulmonary venous congestion. Pt was also found to be in AFib with RVR, HR 110-130s, and thus cardiology has been consulted. Pt's home medications include lopressor and digoxin. Dig level on admission was 0.4. Of note, echo done at [place] on 11/23/2016 showed EF 60 - 65%, mild LVH, grade III diastolic dysfunction, severe biatrial enlargement, aortic sclerosis without stenosis, mild AI, mild MR, mild TR. Past History Past Medical History: atrial fib, diabetes, heart failure, hypertension, hypothyroidism, other (PEG placement, dementia) Past Surgical History: Other (PEG) Social history: lives with family. denies: smoking, alcohol abuse, prescription drug abuse Medications and Allergies Allergies Allergy/AdvReac Type Severity Reaction Status Date / Time Iodinated Contrast Media - Allergy Itching Verified 05/25/15 11:08 IV Dye Home Medications Medication Instructions Recorded Confirmed Last Taken Type Metoprolol [Lopressor TAB] 50 mg FEEDTUBE BID 10/16/13 01/29/17 01/28/17 History Quetiapine Fumarate [SEROquel] 25 mg FEEDTUBE DAILY 10/16/13 01/29/17 01/28/17 History Rosuvastatin (Nf) [Crestor] 1 tab FEEDTUBE DAILY 10/16/13 01/29/17 01/28/17 History amLODIPine [Norvasc] 10 mg FEEDTUBE DAILY 10/16/13 01/29/17 01/28/17 History Aspirin BABY CHEW TAB 81 mg PO DAILY 01/09/16 01/29/1701/28/17 History Levothyroxine 50 meq FEEDTUBE DAILY 01/09/16 01/29/17 01/28/17 History Active Meds: Active Medications Lipase/Protease/Amylase ([place] 10,500 Unit) 1 each FEEDTUBE PRN PRN PRN Reason: For Clogged Feeding Tube Ascorbic Acid (Vitamin C) 500 mg FEEDTUBE QDAY [facility] Last Admin: 01/29/17 12:14 Dose: 500 mg Aspirin (Baby Aspirin) 81 mg FEEDTUBE QDAY [facility] Last Admin: 01/29/17 11:30 Dose: 81 mg Bisacodyl (Dulcolax) 10 mg [place] QDAY PRN PRN Reason: constipation unrelieved by MOM Dextrose (D50w (25gm)) 50 ml IV PRN PRN PRN Reason: Hypoglycemia Digoxin (Lanoxin) 0.125 mg FEEDTUBE DAILY [facility] Last Admin: 01/29/17 12:12 Dose: 0.125 mg Heparin Sodium (Porcine) (Heparin) 5,000 unit SUB-Q Q12HR [facility] Sodium Chloride (Nacl 0.9% 1000 Ml) 1,000 mls @ 75 mls/hr IV DIRECT [facility] Last Admin: 01/29/17 11:20 Dose: 75 mls/hr Ceftriaxone Sodium (Rocephin/Ns 1 Gm/50 Ml) 1 gm in 50 mls @ 100 mls/hr IV Q24HR [facility] PRN Reason: Protocol Insulin Aspart (Novolog) 0 units SUB-Q Q6HR [facility] PRN Reason: Protocol Memantine (Namenda (Nf)) 10 mg FEEDTUBE DAILY [facility] Last Admin: 01/29/17 12:16 Dose: 10 mg Metoprolol Tartrate (Lopressor) 50 mg FEEDTUBE BID [facility] Last Admin: 01/29/17 11:28 Dose: 50 mg Quetiapine Fumarate (Seroquel) 25 mg FEEDTUBE DAILY [facility] Last Admin: 01/29/17 11:29 Dose: 25 mg Simple Syrup (Simple Syrup) 15 ml FEEDTUBE PRN PRN PRN Reason: Hypoglycemia Simple Syrup (Simple Syrup) 30 ml FEEDTUBE PRN PRN PRN Reason: Hypoglycemia Sodium Bicarbonate (Sodium Bicarbonate) 325 mg FEEDTUBE PRN PRN PRN Reason: For Clogged Feeding Tube Review of Systems ROS unobtainable: due to mental status Physical Examination Last Vital Signs Temp 98 F 01/29/17 13:03 Pulse 96 H 01/29/17 13:03 Resp 20 01/29/17 13:03 BP 133/83 01/29/17 13:03 Pulse Ox 100 01/29/17 13:03 General appearance: no acute distress, other (nonverbal, does not respond to commands) HEENT: Positive: PERRL, Normocephaly, Mucus Membranes Moist Neck: Positive: neck supple, trachea midline Cardiac: Positive: irregularly irregular, S1/S2, Systolic Murmur, Tachycardia Lungs: Positive: Decreased Breath Sounds Neuro: Positive: Grossly Intact, Other (nonverbal, no purposeful movement noted ) Abdomen: Positive: Unremarkable, Soft, Active Bowel Sounds. Negative: Tender Skin: Positive: Clear. Negative: Rash, Wound Musculoskeletal: No Fluid Collection, No Pain, Normal Range of Motion Extremities: Present: Cool (RLE ). Absent: edema Results 01/29/17 04:50 01/29/17 04:50 Coagulation 01/29/17 Range/Units 10:14 PT 15.2 H (12.2-14.9) Sec. INR 1.21 H (0.87-1.13) APTT 28.0 (24.2-36.6) Sec. - Imaging and Cardiology Echo: report reviewed (11/23/2016: EF 60 - 65%, mild LVH, grade III diastolic dysfunction, severe biatrial enlargement, aortic sclerosis without stenosis, mild AI, mild MR, mild TR. ) EKG: image reviewed EKG interpretations - Telemetry EKG Rhythm: Atrial Fibrillation - EKG Supraventricular dysrhythmia: atrial fibrillation Assessment and Plan Assessment: Chronic atrial fibrillation with RVR AMS / encephalopathy ? Sepsis / UTI / suspected aspiration PNA Transaminitis ? RLE ischemia - no recommendations for any arterial intervention at this point per vascular. HTN Uncontrolled DM H/o hypothyroidism Advanced dementia / s/p PEG Plan: Cont ASA 81. Resume home statin. Cont home digoxin 0.125mg daily. Increase lopressor to 50mg PO TID. Obtain thyroid panel and serum Mg in AM. No indication for any additional cardiac testing at this time given recent echo at [place]. Cont tele. Long-term systemic anticoagulation in regards to atrial fibrillation was discontinued per pt's primary dental insurance coordinator several years ago d/t pt's advanced dementia, advanced age and high risk for falls. We agree that the pt is not an ideal candidate for prison anticoagulation and her family also agrees with this assessment and wishes to remain off of systemic anticoagulation. Cont DVT prophylaxis. Assessment and plan reviewed with pt's family at bedside. The patient has been seen in conjunction with Dr. LIBAN Beatty who agrees with the assessment and plan of care.
--- NOTE | 2017-01-29 15:29 | Consultation ---
History of Present Illness - Reason for Consult Consult date: 01/29/17 Evaluation of a Cold Right Lower Extremity - History of Present Illness This pt is an 86 yo AAF that presented to the [facility] ER on 01/29/17 with reports of a 2 day h/o agitation. [place] a [place] which is non-verbal with and underlying dementia. Following admission she was dx'd with a UTI and an aspiration pneumonia. The pt was treated with Haldol, and Benadryl and subsequently examined. During the physical exam, she was noted to have a cool RLE. With a known h/o of A-fib, and concerns of possible lower ext embolization , a vascular surgery consult was requested to further evaluate. The pt is alone and unable to provide a history. The history is taken from the medical record and supplemented by the medical staff. Past History Past Medical History: atrial fib (dementia), diabetes, hypertension, hyperlipidemia, other ( A-FIB) Past Surgical History: Other (PEG placement o/w unknown) Social history: other (unable to assess) Family history: other (unable to assess) Medications and Allergies Allergies Allergy/AdvReac Type Severity Reaction Status Date / Time Iodinated Contrast Media - Allergy Itching Verified 05/25/15 11:08 IV Dye Home Medications Medication Instructions Recorded Confirmed Last Taken Type Metoprolol [Lopressor TAB] 50 mg FEEDTUBE BID 10/16/13 01/29/17 01/28/17 History Quetiapine Fumarate [SEROquel] 25 mg FEEDTUBE DAILY 10/16/13 01/29/17 01/28/17 History Rosuvastatin (Nf) [Crestor] 1 tab FEEDTUBE DAILY 10/16/13 01/29/17 01/28/17 History amLODIPine [Norvasc] 10 mg FEEDTUBE DAILY 10/16/13 01/29/17 01/28/17 History Aspirin BABY CHEW TAB 81 mg PO DAILY 01/09/16 01/29/17 01/28/17 History Levothyroxine 50 meq FEEDTUBE DAILY 01/09/16 01/29/17 01/28/17 History Active Meds: Active Medications Lipase/Protease/Amylase (Don Dr 10,500 Unit) 1 each FEEDTUBE PRN PRN PRN Reason: For Clogged Feeding Tube Ascorbic Acid (Vitamin C) 500 mg FEEDTUBE QDAY [facility] Last Admin: 01/29/17 12:14 Dose: 500 mg Aspirin (Baby Aspirin) 81 mg FEEDTUBE QDAY [facility] Last Admin: 01/29/17 11:30 Dose: 81 mg Bisacodyl (Dulcolax) 10 mg [place] QDAY PRN PRN Reason: constipation unrelieved by MOM Dextrose (D50w (25gm)) 50 ml IV PRN PRN PRN Reason: Hypoglycemia Digoxin (Lanoxin) 0.125 mg FEEDTUBE DAILY [facility] Last Admin: 01/29/17 12:12 Dose: 0.125 mg Heparin Sodium (Porcine) (Heparin) 5,000 unit SUB-Q Q12HR [facility] Sodium Chloride (Nacl 0.9% 1000 Ml) 1,000 mls @ 75 mls/hr IV DIRECT [facility] Last Admin: 01/29/17 11:20 Dose: 75 mls/hr Ceftriaxone Sodium (Rocephin/Ns 1 Gm/50 Ml) 1 gm in 50 mls @ 100 mls/hr IV Q24HR [facility] PRN Reason: Protocol Insulin Aspart (Novolog) 0 units SUB-Q Q6HR [facility] PRN Reason: Protocol Memantine (Namenda (Nf)) 10 mg FEEDTUBE DAILY [facility] Last Admin: 01/29/17 12:16 Dose: 10 mg Metoprolol Tartrate (Lopressor) 50 mg FEEDTUBE BID [facility] Last Admin: 01/29/17 11:28 Dose: 50 mg Quetiapine Fumarate (Seroquel) 25 mg FEEDTUBE DAILY [facility] Last Admin: 01/29/17 11:29 Dose: 25 mg Simple Syrup (Simple Syrup) 15 ml FEEDTUBE PRN PRN PRN Reason: Hypoglycemia Simple Syrup (Simple Syrup) 30 ml FEEDTUBE PRN PRN PRN Reason: Hypoglycemia Sodium Bicarbonate (Sodium Bicarbonate) 325 mg FEEDTUBE PRN PRN PRN Reason: For Clogged Feeding Tube Review of Systems ROS unobtainable: due to mental status Exam - Constitutional Vitals: Temp Pulse Resp BP Pulse Ox 98 F 96 H 20 133/83 100 01/29/17 13:03 01/29/17 13:03 01/29/17 13:03 01/29/17 13:03 01/29/17 13:03 General appearance: Present: no acute distress (pt sedated) - EENT Eyes: Present: EOM intact - Neck Neck: Present: supple - Respiratory Respiratory effort: normal - Extremities Extremities: abnormal (palp femoral pulses bilat, non-palp pulses distal to the femoral. The LLE is warm, but the right is warm to approximately mid-calf. She is cool (not cold/cadaveric) from the mid-calf to the distal foot.) - Psychiatric Psychiatric: no appropriate mood/affect, no intact judgment & insight, no cooperative - Neurologic Neurologic: other (Pt retracts foot to manipulation, and moves the right foot.) Results - Labs CBC & Chem 7: 01/29/17 04:50 01/29/17 04:50 Labs: Abnormal lab results 01/29/17 01/29/17 01/29/17 Range/Units 08:47 09:25 10:14 PT 15.2 H (12.2-14.9) Sec. INR 1.21 H (0.87-1.13) POC ABG pCO2 52.5 H (35-45) POC ABG pO2 121 H (80-105) Digoxin 0.4 L (0.9-2.0) ng/mL Assessment and Plan This pt presented to the hospital with AMS and new onset agitation. During her physical exam, she was noted to have a cool RLE. The pt has known A- fib, and with concerns of a possible embolic event, a vascular surgery consult was requested to further evaluate. An arterial duplex was ordered. The preliminary vascular lab study suggest chronic arterial disease with bilateral co-lateralization. The flows are similar when compared right to left. Given the low velocities, this could represent poor cardiac function. Do not recommend any arterial intervention at this point.
[2017-01-29] MEDS: NOVOLOG SUB-Q SCH ×2 (17:35→17:42)
[2017-01-29] MEDS: LOPRESSOR FEEDTUBE SCH (22:11)
[2017-01-29] MEDS: HEPARIN SUB-Q SCH (22:11)
[2017-01-30] MEDS: NOVOLOG SUB-Q SCH ×4 (00:30→17:59)
[2017-01-30] MEDS: NACL 0.9% 1000 ML 1,000 ML IV SCH (03:44)
[2017-01-30] MEDS ORDERED: TORADOL IV ONE (03:54)
[2017-01-30 06:46] LABS: Basophils % (Auto) 0.4 % (0.0-1.8); Eosinophils % (Auto) 0.6 % (0.0-4.3); Hematocrit 39.8 % (30.3-42.9); Hemoglobin 12.7 gm/dl (10.1-14.3); Mean Corpuscular HGB Conc 32 % (30-34); Mean Corpuscular Volume 80 fl (79-97); Platelet Count 133 K/mm3 (140-440); White Blood Count 9.5 K/mm3 (4.5-11.0)
[2017-01-30 06:49] LABS: Mean Corpuscular Hemoglobin 25 pg (28-32); Red Cell Distribution Width 20.2 % (13.2-15.2)
--- NOTE | 2017-01-30 07:43 | Progress Note ---
Assessment and Plan Assessment and plan: Patient is a 86 years old woman with h/o DM type 2, chronic atrial fibrillation (not on AC d/t fall risk and advanced dementia per Cardiology), diastolic heart failure (echo done at [place] on 11/23/2016 showed EF 60 - 65%, mild LVH, grade III diastolic dysfunction, severe biatrial enlargement, aortic sclerosis without stenosis, mild AI, mild MR, mild TR), HTN, hypothyroidism, dementia, s/p PEG tube. Pt presented with c/o increased agitation and fever x 2 days. Upon admission, pt was found to have hypoxia requiring 30% FiO2, UTI, lactic acidosis, sepsis, elevated pro-BNP, suspected aspiration pneumonitis, transaminitis, uncontrolled DM, and suspected RLE ischemia. CXR shows mild cardiomegaly and pulmonary venous congestion. Pt was also found to be in AFib with RVR, HR 110-130s, and thus cardiology has been consulted. Pt's home medications include lopressor and digoxin. Dig level on admission was 0.4. Diagnoses -Acute metabolic encephalopathy Most likely this is patients baseline VS due to Sepsis treat the underline cause Supportive care Suspected peritonitis/Liver transaminitis: Abdominal ultrasound pending Abdomen ultrasound ordered Urine and blood Cultures collected Started on empiric antibiotic treatment IV Rocephin Nothing by mouth IV fluid hydration Supportive care. Check ammonia level and PT/INR GI consulted Sepsis secondary to urinary tract infection. Urine and blood Cultures collected IV fluid resuscitation Started on IV Rocephin Ischemic right lower extremity VL LE venous Doppler ordered Vascular consulted===> per Vascular, "This pt presented to the hospital with AMS and new onset agitation. During her physical exam, she was noted to have a cool RLE. The pt has known A-fib, and with concerns of a possible embolic event , a vascular surgery consult was requested to further evaluate. An arterial duplex was ordered. The preliminary vascular lab study suggest chronic arterial disease with bilateral co-lateralization. The flows are similar when compared right to left. Given the low velocities, this could represent poor cardiac function. Do not recommend any arterial intervention at this point." Acute respiratory failure Started on Duoneb TID due to patients Oxygen supplement ABG as needed Supportive care Lactic acidosis Most likely due to sepsis We will repeat lactic acidosis Arterial fibrillation with RVR Admit to Machine Maintenance PT/INR Cardiology consulted Uncontrolled diabetes mellitus Nothing by mouth Accu-Chek every 6 hours Sliding scale insulin/NovoLog Nutrition consulted Suspected aspiration pneumonitis Blood culture collected started on IV antibiotic Congestive heart failure, acute on chronic diastolic heart failure Elevated BNP Chest x-ray revealed mild cardiomegaly & pulmonary venous congestion but no CHF Echocardiogram ordered Cardiology consulted PEG tube peg-tube placement GI consulted DVT prophylaxis Heparin New issue: Malignant hypertension with A. fib RVR: Give stat dose of IV Cardizem followed by oral Cardizem, notify cardiology also History Interval history: Patient seen and examined. Follow up on current diagnosis/ams. Nonverbal, bp and hr is up. Imaging, old records, testing, labs, nursing notes reviewed. Hospitalist Physical - Physical exam Narrative exam: GEN: thin cachetic NAD, lethargic HEENT: NCAT, PERRL, EOMI, OP CLEAR NECK: SUPPLE, NO THYROMEGALY, NO JVD, NO LAD CVS: irregular irregular, NORMAL S1S2, reduced petal pulses right >left LUNGS/CHEST: faint bilateral crackles, NORMAL CHEST EXPANSION B, diminished AIR ENTRY B ABD: SOFT, NTND, GBS, NO REBOUND OR GUARDING EXT/SKIN: NO SIGNIFICANT EDEMA OR RASH MSK: FROM X 4 EXTREMITIES NEURO: CN 2-12 GROSSLY INTACT, NO new FOCAL DEFICITS PSY: Confused - Constitutional Vitals: Temp Pulse Resp BP Pulse Ox 97.5 F L 127 H 20 180/129 94 01/30/17 07:23 01/30/17 07:23 01/30/17 07:23 01/30/17 07:23 01/30/17 07:23 General appearance: Present: no acute distress, other (nonverbal, does not respond to commands) Results - Labs CBC & Chem 7: 01/30/17 05:52 01/29/17 04:50 Labs: Laboratory Last Values WBC 9.5 K/mm3 (4.5-11.0) 01/30/17 05:52 RBC 5.00 M/mm3 (3.65-5.03) 01/30/17 05:52 Hgb 12.7 gm/dl (10.1-14.3) 01/30/17 05:52 Hct 39.8 % (30.3-42.9) D 01/30/17 05:52 MCV 80 fl (79-97) 01/30/17 05:52 MCH 25 pg (28-32) L 01/30/17 05:52 MCHC 32 % (30-34) 01/30/17 05:52 RDW 20.2 % (13.2-15.2) H 01/30/17 05:52 Plt Count 133 K/mm3 (140-440) L 01/30/17 05:52 Lymph % (Auto) 5.9 % (13.4-35.0) L 01/30/17 05:52 [place] % (Auto) 7.9 % (0.0-7.3) H 01/30/17 05:52 Eos % (Auto) 0.6 % (0.0-4.3) 01/30/17 05:52 Baso % (Auto) 0.4 % (0.0-1.8) 01/30/17 05:52 Lymph # 0.6 K/mm3 (1.2-5.4) L 01/30/17 05:52 [place] # 0.7 K/mm3 (0.0-0.8) 01/30/17 05:52 Eos # 0.1 K/mm3 (0.0-0.4) 01/30/17 05:52 Baso # 0.0 K/mm3 (0.0-0.1) 01/30/17 05:52 Seg Neutrophils % 85.2 % (40.0-70.0) H 01/30/17 05:52 Seg Neutrophils # 8.1 K/mm3 (1.8-7.7) H 01/30/17 05:52 PT 15.2 Sec. (12.2-14.9) H 01/29/17 10:14 INR 1.21 (0.87-1.13) H 01/29/17 10:14 APTT 28.0 Sec. (24.2-36.6) 01/29/17 10:14 POC ABG pH 7.387 (7.35-7.45) 01/29/17 08:47 POC ABG pCO2 52.5 (35-45) H 01/29/17 08:47 POC ABG pO2 121 (80-105) H 01/29/17 08:47 POC ABG HCO3 31.5 01/29/17 08:47 POC ABG Total CO2 33 01/29/17 08:47 POC ABG O2 Sat 99 01/29/17 08:47 POC ABG Base Excess 6 01/29/17 08:47 FiO2 30 % 01/29/17 08:47 Sodium 144 mmol/L (137-145) 01/29/17 04:50 Potassium 4.5 mmol/L (3.6-5.0) 01/29/17 04:50 Chloride 102.5 mmol/L (98-107) 01/29/17 04:50 Carbon Dioxide 20 mmol/L (22-30) L 01/29/17 04:50 Anion Gap 26 mmol/L 01/29/17 04:50 BUN 41 mg/dL (7-17) H 01/29/17 04:50 Creatinine 0.6 mg/dL (0.7-1.2) L 01/29/17 04:50 Estimated GFR > 60 ml/min 01/29/17 04:50 BUN/Creatinine Ratio 68.33 % 01/29/17 04:50 Glucose 245 mg/dL (65-100) H 01/29/17 04:50 POC Glucose 175 (70-105) H 01/30/17 06:50 Lactic Acid 2.70 mmol/L (0.7-2.0) H* 01/29/17 07:56 Calcium 9.3 mg/dL (8.4-10.2) 01/29/17 04:50 Magnesium 2.50 mg/dL (1.7-2.3) H 01/30/17 05:52 Total Bilirubin 0.90 mg/dL (0.1-1.2) 01/29/17 04:50 AST 122 units/L (5-40) H 01/29/17 04:50 ALT 190 units/L (7-56) H 01/29/17 04:50 Alkaline Phosphatase 169 units/L (35-129) H 01/29/17 04:50 Ammonia 45.0 umol/L (25-60) 01/29/17 13:38 NT-Pro-B Natriuret Pep 15271 pg/mL (0-900) H 01/29/17 07:05 Total Protein 7.4 g/dL (6.3-8.2) 01/29/17 04:50 Albumin 3.2 g/dL (3.9-5) L 01/29/17 04:50 Albumin/Globulin Ratio 0.8 % 01/29/17 04:50 TSH 3.560 mlU/mL (0.270-4.200) 01/30/17 05:52 Free T4 1.27 ng/dL (0.76-1.46) 01/30/17 05:52 Urine Color Red (Yellow) 01/29/17 06:24 Urine Turbidity Cloudy (Clear) 01/29/17 06:24 Urine pH 5.0 (5.0-7.0) 01/29/17 06:24 Ur Specific [place] 1.016 (1.003-1.030) 01/29/17 06:24 Urine Protein >500 mg/dL (Negative) 01/29/17 06:24 Urine Glucose (UA) Neg mg/dL (Negative) 01/29/17 06:24 Urine Ketones Neg mg/dL (Negative) 01/29/17 06:24 Urine Blood Lg (Negative) 01/29/17 06:24 Urine Nitrite Neg (Negative) 01/29/17 06:24 Urine Bilirubin Neg (Negative) 01/29/17 06:24 Urine Urobilinogen 2.0 mg/dL (<2.0) 01/29/17 06:24 Ur Leukocyte Esterase Lg (Negative) 01/29/17 06:24 Urine WBC (Auto) > 182.0 /HPF (0.0-6.0) H 01/29/17 06:24 Urine RBC (Auto) > 182.0 /HPF (0.0-6.0) 01/29/17 06:24 U Epithel Cells (Auto) 3.0 /HPF (0-13.0) 01/29/17 06:24 Urine Bacteria (Auto) 4+ /HPF (Negative) 01/29/17 06:24 Urine WBC Clumps 3+ /HPF 01/29/17 06:24 Urine Yeast (Budding) Few /HPF 01/29/17 06:24 Digoxin 0.4 ng/mL (0.9-2.0) L 01/29/17 09:25
--- NOTE | 2017-01-30 07:44 | Ultrasound Report ---
ULTRASOUND ABDOMEN COMPLETE: Technique: Transabdominal ultrasound with color Doppler interrogation. History: abdominal pain, distention. Findings: Correlation is made with a CT abdomen pelvis report without contrast dated 06/25/11. The images are not available. The liver appears normal size and contour. The previously described large right hepatic lobe lesion is not demonstrated on today's exam and has apparently resolved. The liver is unremarkable on today's exam. There is mild diffuse gallbladder wall thickening measuring 4 mm. No significant distention. There is trace pericholecystic fluid. There is a small amount of sludge and small gallstones within the gallbladder. The CBD 3 mm. The visualized portions of the pancreas including the head and proximal body are within normal limits. Both kidneys are borderline atrophic with increased cortical echotexture. Mild to moderate bilateral hydronephrosis is identified. No evidence for renal mass, cystic disease or nephrolithiasis. The bladder was not imaged. The spleen and aorta are within normal limits. No aneurysmal dilatation is noted. Trace ascites. IMPRESSION: Bilateral hydronephrosis of uncertain etiology. Consider further evaluation with CT abdomen and pelvis noncontrast. Mild underlying chronic renal parenchymal disease is suspected. Cholelithiasis. There is mild gall bladder wall thickening and trace pericholecystic fluid or ascites. No abnormal gallbladder distention. I suspect this gallbladder wall thickening is secondary to trace ascites. Please correlate with the patient.
[2017-01-30] MEDS: LOPRESSOR FEEDTUBE SCH ×3 (07:51→22:20)
[2017-01-30] MEDS ORDERED: CARDIZEM IV ONE (08:30)
[2017-01-30] MEDS: ROCEPHIN/NS 1 GM/50 ML 1 GM/50 ML BAG IV SCH (09:33)
[2017-01-30] MEDS: LANOXIN FEEDTUBE SCH (09:34)
[2017-01-30] MEDS: NAMENDA FEEDTUBE SCH (09:35)
[2017-01-30] MEDS: VITAMIN C FEEDTUBE SCH (09:35)
[2017-01-30] MEDS: BABY ASPIRIN FEEDTUBE SCH (09:35)
--- NOTE | 2017-01-30 11:22 | Progress Note ---
Assessment and Plan Assessment: Chronic atrial fibrillation with RVR AMS / encephalopathy ? Sepsis / UTI / suspected aspiration PNA Transaminitis ? RLE ischemia - no recommendations for any arterial intervention at this point per vascular. HTN Uncontrolled DM H/o hypothyroidism Advanced dementia / s/p PEG Plan: Cardizem initiated this AM per primary. Cont lopressor 50mg PO TID and digoxin. Cont ASA 81 and statin. No indication for any additional cardiac testing at this time given recent echo at [place]. Cont tele. 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 We agree that the pt is not an ideal candidate for watermelon harvesting supervisor anticoagulation and her family also agrees with this assessment and wishes to remain off of systemic anticoagulation. Cont DVT prophylaxis. Assessment and plan reviewed with pt's family at bedside. The patient has been seen in conjunction with Dr. LIBAN Beatty who agrees with the assessment and plan of care. Subjective Date of service: 01/30/17 Principal diagnosis: AFib with RVR Interval history: Pt resting comfortably, no complaints. Remains in AFib with intermittent RVR. BPs stable. Objective Last Vital Signs Temp 97.5 F L 01/30/17 07:23 Pulse 127 H 01/30/17 07:23 Resp 20 01/30/17 07:23 BP 180/129 01/30/17 07:23 Pulse Ox 94 01/30/17 07:23 - Physical Examination General: No Apparent Distress HEENT: Positive: PERRL, Normocephaly, Mucus Membranes Moist Neck: Positive: neck supple, trachea midline Cardiac: Positive: irregularly irregular, S1/S2, Systolic Murmur Lungs: Positive: clear to auscultation Neuro: Positive: Grossly Intact, Other (nonverbal, no purposeful movement noted ) Abdomen: Positive: Unremarkable, Soft, Active Bowel Sounds. Negative: Tender Skin: Positive: Clear. Negative: Rash, Wound Musculoskeletal: No Fluid Collection, No Pain, Normal Range of Motion Extremities: Present: Cool (RLE ). Absent: edema - Labs and Meds CBC 01/30/17 Range/Units 05:52 WBC 9.5 (4.5-11.0) K/mm3 RBC 5.00 (3.65-5.03) M/mm3 Hgb 12.7 (10.1-14.3) gm/dl Hct 39.8 D (30.3-42.9) % Plt Count 133 L (140-440) K/mm3 Lymph # 0.6 L (1.2-5.4) K/mm3 Boundary # 0.7 (0.0-0.8) K/mm3 Eos # 0.1 (0.0-0.4) K/mm3 Baso # 0.0 (0.0-0.1) K/mm3 - Imaging and Cardiology EKG: image reviewed Echo: report reviewed (11/23/2016: EF 60 - 65%, mild LVH, grade III diastolic dysfunction, severe biatrial enlargement, aortic sclerosis without stenosis, mild AI, mild MR, mild TR. ) - Telemetry EKG Rhythm: Atrial Fibrillation
[2017-01-30] MEDS: CARDIZEM PO SCH ×2 (13:02→17:59)
--- NOTE | 2017-01-30 14:14 | Consultation ---
History of Present Illness - Reason for Consult Consult date: 01/30/17 Abnormal LFTs - History of Present Illness Pt with dementia and feeding tube in place, admitted for fever and altered mental status x 2 days. Hx obtained from chart. Dx'd with UTI and sepsis. Found to have elevated AST/ALT = 122/190, with ALP/TBili = 169/0.9. Old records from prior admit at [facility] reviewed. No hx of liver disease. Normal LFTs approx 1 yr ago. U/S here shows gallstones, bilat hydronephrosis, and 3 mm CBD. Plt count on admit = 176K. Pt unable to give hx, no family present. Past History Past Medical History: atrial fib, diabetes, heart failure, hypertension, hypothyroidism, other (PEG placement, dementia) Past Surgical History: Other (PEG) Social history: lives with family. denies: smoking, alcohol abuse, prescription drug abuse Family history: other (unable to assess) Medications and Allergies Allergies Allergy/AdvReac Type Severity Reaction Status Date / Time Iodinated Contrast Media - Allergy Itching Verified 05/25/15 11:08 IV Dye Home Medications Medication Instructions Recorded Confirmed Last Taken Type Metoprolol [Lopressor TAB] 50 mg FEEDTUBE BID 10/16/13 01/29/17 01/28/17 History Quetiapine Fumarate [SEROquel] 25 mg FEEDTUBE DAILY 10/16/13 01/29/17 01/28/17 History Rosuvastatin (Nf) [Crestor] 1 tab FEEDTUBE DAILY 10/16/13 01/29/17 01/28/17 History amLODIPine [Norvasc] 10 mg FEEDTUBE DAILY 10/16/13 01/29/17 01/28/17 History Aspirin BABY CHEW TAB 81 mg PO DAILY 01/09/16 01/29/17 01/28/17 History Levothyroxine 50 meq FEEDTUBE DAILY 01/09/16 01/29/17 01/28/17 History Active Meds: Active Medications Lipase/Protease/Amylase ([place] 10,500 Unit) 1 each FEEDTUBE PRN PRN PRN Reason: For Clogged Feeding Tube Ascorbic Acid (Vitamin C) 500 mg FEEDTUBE QDAY [facility] Last Admin: 01/30/17 09:35 Dose: 500 mg Aspirin (Baby Aspirin) 81 mg FEEDTUBE QDAY [facility] Last Admin: 01/30/17 09:35 Dose: 81 mg Atorvastatin Calcium (Lipitor) 40 mg PO QHS [facility] Last Admin: 01/29/17 22:11 Dose: 40 mg Bisacodyl (Dulcolax) 10 mg [place] QDAY PRN PRN Reason: constipation unrelieved by MOM Dextrose (D50w (25gm)) 50 ml IV PRN PRN PRN Reason: Hypoglycemia Digoxin (Lanoxin) 0.125 mg FEEDTUBE DAILY [facility] Last Admin: 01/30/17 09:34 Dose: 0.125 mg Diltiazem HCl (Cardizem) 60 mg PO Q6HR [facility] Last Admin: 01/30/17 13:02 Dose: 60 mg Heparin Sodium (Porcine) (Heparin) 5,000 unit SUB-Q Q12HR [facility] Last Admin: 01/29/17 22:11 Dose: 5,000 unit Sodium Chloride (Nacl 0.9% 1000 Ml) 1,000 mls @ 75 mls/hr IV DIRECT [facility] Last Admin: 01/30/17 03:44 Dose: 75 mls/hr Ceftriaxone Sodium (Rocephin/Ns 1 Gm/50 Ml) 1 gm in 50 mls @ 100 mls/hr IV Q24HR [facility] PRN Reason: Protocol Last Admin: 01/30/17 09:33 Dose: 100 mls/hr Insulin Aspart (Novolog) 0 units SUB-Q Q6HR [facility] PRN Reason: Protocol Last Admin: 01/30/17 13:02 Dose: Not Given Memantine (Namenda (Nf)) 10 mg FEEDTUBE DAILY [facility] Last Admin: 01/30/17 09:35 Dose: 10 mg Metoprolol Tartrate (Lopressor) 50 mg FEEDTUBE TID [facility] Last Admin: 01/30/17 13:06 Dose: 50 mg Quetiapine Fumarate (Seroquel) 25 mg FEEDTUBE DAILY [facility] Last Admin: 01/30/17 09:34 Dose: 25 mg Simple Syrup (Simple Syrup) 15 ml FEEDTUBE PRN PRN PRN Reason: Hypoglycemia Simple Syrup (Simple Syrup) 30 ml FEEDTUBE PRN PRN PRN Reason: Hypoglycemia Sodium Bicarbonate (Sodium Bicarbonate) 325 mg FEEDTUBE PRN PRN PRN Reason: For Clogged Feeding Tube Review of Systems ROS unobtainable: due to mental status Exam - Constitutional Vitals: Temp Pulse Resp BP Pulse Ox 98.3 F 89 20 130/86 99 01/30/17 11:22 01/30/17 11:22 01/30/17 11:22 01/30/17 11:22 01/30/17 11:22 General appearance: Present: no acute distress, other (Respond to pain with withdrawal) - EENT Eyes: Present: PERRL - Neck Neck: Present: supple - Respiratory Respiratory effort: normal Respiratory: bilateral: CTA (anteriorly) - Cardiovascular Rhythm: regular Heart Sounds: Present: S1 & S2 - Abdominal General gastrointestinal: Present: soft, non-tender, other (G-tube site clean, no discharge) Results - Labs CBC & Chem 7: 01/30/17 05:52 01/29/17 04:50 Labs: Abnormal lab results 01/29/17 01/29/17 01/30/17 Range/Units 18:35 21:28 05:52 MCH 25 L (28-32) pg RDW 20.2 H (13.2-15.2) % Plt Count 133 L (140-440) K/mm3 Lymph % (Auto) 5.9 L (13.4-35.0) % [place] % (Auto) 7.9 H (0.0-7.3) % Lymph # 0.6 L (1.2-5.4) K/mm3 Seg Neutrophils % 85.2 H (40.0-70.0) % Seg Neutrophils # 8.1 H (1.8-7.7) K/mm3 POC Glucose 122 H 129 H (70-105) Magnesium (1.7-2.3) mg/dL 01/30/17 01/30/17 Range/Units 05:52 06:50 MCH (28-32) pg RDW (13.2-15.2) % Plt Count (140-440) K/mm3 Lymph % (Auto) (13.4-35.0) % [place] % (Auto) (0.0-7.3) % Lymph # (1.2-5.4) K/mm3 Seg Neutrophils % (40.0-70.0) % Seg Neutrophils # (1.8-7.7) K/mm3 POC Glucose 175 H (70-105) Magnesium 2.50 H (1.7-2.3) mg/dL Assessment and Plan 1. Abnormal LFTs - etiology unclear. Doubt CBD stone, given CBD diameter and enzyme pattern, but would do MRCP if fails to improve. Otherwise, may be due to sepsis and low perfusion, and may respond as pt improves. No liver abnormality or abscess seen on U/S. - monitor LFTs - check hepatitis serologies - tx for sepsis
[2017-01-30 15:46] LABS: INR 1.29 (0.87-1.13)
[2017-01-30] MEDS: HEPARIN SUB-Q SCH ×2 (18:00→22:20)
[2017-01-31] MEDS: CARDIZEM PO SCH ×5 (00:43→23:11)
[2017-01-31] MEDS: NOVOLOG SUB-Q SCH ×5 (00:44→23:16)
[2017-01-31] MEDS: NACL 0.9% 1000 ML 1,000 ML IV SCH (01:34)
[2017-01-31 05:59] LABS: Hematocrit 37.8 % (30.3-42.9); Hemoglobin 12.2 gm/dl (10.1-14.3); Mean Corpuscular HGB Conc 32 % (30-34); Mean Corpuscular Volume 79 fl (79-97); Platelet Count 136 K/mm3 (140-440); Red Blood Count 4.79 M/mm3 (3.65-5.03); Red Cell Distribution Width 19.9 % (13.2-15.2); White Blood Count 7.4 K/mm3 (4.5-11.0)
[2017-01-31 06:07] LABS: Alanine Aminotransferase 258 units/L (7-56); Albumin/Globulin Ratio 0.9 %; Alkaline Phosphatase 199 units/L (35-129); BUN/Creatinine Ratio 71.66; Blood Urea Nitrogen 43 mg/dL (7-17); Calcium 8.7 mg/dL (8.4-10.2); Carbon Dioxide 29 mmol/L (22-30); Chloride 110.6 mmol/L (98-107); Glucose 136 mg/dL (65-100); Potassium 3.9 mmol/L (3.6-5.0); Sodium 151 mmol/L (137-145); Total Protein 6.5 g/dL (6.3-8.2)
[2017-01-31 06:09] LABS: Mean Corpuscular Hemoglobin 25 pg (28-32)
[2017-01-31 06:27] LABS: Anion Gap 15 mmol/L
[2017-01-31] MEDS: LOPRESSOR FEEDTUBE SCH ×3 (08:19→21:48)
--- NOTE | 2017-01-31 08:20 | Vascular Lab Report ---
LOWER EXTREMITY ARTERIAL DUPLEX: REASON FOR EXAM: Peripheral arterial disease. COMMENTS ON THE RIGHT: Biphasic waveforms are seen proximally. Monophasic waveforms are seen distally. Significantly decreased velocities noted throughout the vessels.. Diffuse plaque identified throughout the liver. Findings are consistent with abnormal perfusion. Findings are inconclusive with the ability to heal distal wounds. COMMENTS ON THE LEFT: Biphasic waveforms are seen proximally. Biphasic waveforms are seen distally. Significant decrease is noted in the velocities throughout the vessels.. Diffuse plaque noted throughout the left. Findings are consistent with abnormal perfusion. Findings are inconclusive with the ability to heal distal wounds. IMPRESSION: RIGHT: Decrease in the flow throughout the left may be due to either inflow disease or poor cardiac function. LEFT:Decrease in flow throughout the left may be due to either inflow stenosis or cardiac function Clinical correlation is recommended. If indicated contrast study should be considered.
--- NOTE | 2017-01-31 10:56 | Progress Note ---
Assessment and Plan Assessment: Chronic atrial fibrillation with RVR -> now with CVR. AMS / encephalopathy ? Sepsis / UTI / suspected aspiration PNA Transaminitis ? RLE ischemia - no recommendations for any arterial intervention at this point per vascular. HTN Uncontrolled DM H/o hypothyroidism Advanced dementia / s/p PEG Plan: D/c digoxin. Cont Lopressor and cardizem, ASA 81 and statin. Long-term systemic anticoagulation in regards to atrial fibrillation was discontinued per pt's primary limnologist several years ago d/t pt's advanced dementia, advanced age and high risk for falls. We agree that the pt is not an ideal candidate for correction anticoagulation and her family also agrees with this assessment and wishes to remain off of systemic anticoagulation. Cont DVT prophylaxis. Currently stable cardiac status. Will see PRN. The patient has been seen in conjunction with Dr. Amita Beatty who agrees with the assessment and plan of care. Subjective Date of service: 01/31/17 Principal diagnosis: AFib with RVR Interval history: Pt resting comfortably, withdrawn, nonverbal. Remains in AFib with now CVR. BPs stable. Objective Last Vital Signs Temp 98.2 F 01/31/17 07:46 Pulse 72 01/31/17 08:19 Resp 28 H 01/31/17 07:46 BP 147/98 01/31/17 08:19 Pulse Ox 97 01/31/17 08:00 - Physical Examination General: No Apparent Distress, Other (withdrawn, nonverbal) HEENT: Positive: PERRL, Normocephaly, Mucus Membranes Moist Neck: Positive: neck supple, trachea midline Cardiac: Positive: irregularly irregular, S1/S2 Lungs: Positive: Decreased Breath Sounds Neuro: Positive: Grossly Intact, Other (nonverbal, no purposeful movement noted ) Abdomen: Positive: Unremarkable, Soft, Active Bowel Sounds. Negative: Tender Skin: Positive: Clear. Negative: Rash, Wound Musculoskeletal: No Fluid Collection, No Pain, Normal Range of Motion Extremities: Present: Cool (RLE ). Absent: edema - Labs and Meds Cardiac Enzymes 01/31/17 Range/Units 05:02 AST 170 H (5-40) units/L Coagulation 01/30/17 Range/Units 14:35 PT 16.0 H (12.2-14.9) Sec. INR 1.29 H (0.87-1.13) CBC 01/31/17 Range/Units 05:02 WBC 7.4 (4.5-11.0) K/mm3 RBC 4.79 (3.65-5.03) M/mm3 Hgb 12.2 (10.1-14.3) gm/dl Hct 37.8 (30.3-42.9) % Plt Count 136 L (140-440) K/mm3 Comprehensive Metabolic Panel 01/31/17 Range/Units 05:02 Sodium 151 H (137-145) mmol/L Potassium 3.9 (3.6-5.0) mmol/L Chloride 110.6 H (98-107) mmol/L Carbon Dioxide 29 D (22-30) mmol/L BUN 43 H (7-17) mg/dL Creatinine 0.6 L (0.7-1.2) mg/dL Glucose 136 H (65-100) mg/dL Calcium 8.7 (8.4-10.2) mg/dL AST 170 H (5-40) units/L ALT 258 H (7-56) units/L Alkaline Phosphatase 199 H (35-129) units/L Total Protein 6.5 (6.3-8.2) g/dL Albumin 3.0 L (3.9-5) g/dL - Imaging and Cardiology EKG: image reviewed Echo: report reviewed (11/23/2016: EF 60 - 65%, mild LVH, grade III diastolic dysfunction, severe biatrial enlargement, aortic sclerosis without stenosis, mild AI, mild MR, mild TR. ) - Telemetry EKG Rhythm: Atrial Fibrillation
[2017-01-31] MEDS: BABY ASPIRIN FEEDTUBE SCH (11:26)
[2017-01-31] MEDS: LANOXIN FEEDTUBE SCH (11:27)
[2017-01-31] MEDS: VITAMIN C FEEDTUBE SCH (11:27)
[2017-01-31] MEDS: ROCEPHIN/NS 1 GM/50 ML 1 GM/50 ML BAG IV SCH (11:27)
[2017-01-31] MEDS: HEPARIN SUB-Q SCH ×2 (11:28→21:46)
--- NOTE | 2017-01-31 13:38 | Progress Note ---
Assessment and Plan Vascular surgery consulted with concerns of right lower ext. ischemia. Duplex suggest chronic arterial disease and possible poor cardiac output. It did not suggest an embolic event resulting in RLE ischemia. Pt eval'd earlier this am. Both feet warm. No emergent vascular surgery intervention required at this point. Will see again as needed. - Patient Problems (1) Peripheral arterial disease Current Visit: Yes Status: Acute Subjective Date of service: 01/31/17 Principal diagnosis: AFib with RVR Interval history: Pt awake, but non-verbal. Objective - Constitutional Vitals: Vital Signs - 12hr 01/31/17 01/31/17 01/31/17 04:00 07:46 08:00 Temperature 98.3 F 98.2 F Pulse Rate 87 72 Respiratory 18 28 H Rate Blood Pressure 154/98 147/98 O2 Sat by Pulse 98 97 97 Oximetry 01/31/17 01/31/17 08:19 11:52 Temperature 98.0 F Pulse Rate 72 76 Respiratory 24 Rate Blood Pressure 147/98 159/91 O2 Sat by Pulse 96 Oximetry General appearance: Present: no acute distress - Neck Neck: supple - Respiratory Respiratory effort: normal Extremities: normal temperature (both lower ext warm and appear adequately perfused at present.) - Psychiatric Psychiatric: no intact judgment & insight, no cooperative - Labs CBC & Chem 7: 01/31/17 05:02 01/31/17 05:02 Labs: Abnormal lab results 01/30/17 01/30/17 01/30/17 Range/Units 11:20 14:35 17:43 MCH (28-32) pg RDW (13.2-15.2) % Plt Count (140-440) K/mm3 PT 16.0 H (12.2-14.9) Sec. INR 1.29 H (0.87-1.13) Sodium (137-145) mmol/L Chloride (98-107) mmol/L BUN (7-17) mg/dL Creatinine (0.7-1.2) mg/dL Glucose (65-100) mg/dL POC Glucose 161 H 131 H (70-105) AST (5-40) units/L ALT (7-56) units/L Alkaline Phosphatase (35-129) units/L Albumin (3.9-5) g/dL 01/31/17 01/31/17 01/31/17 Range/Units 00:08 05:02 05:02 MCH 25 L (28-32) pg RDW 19.9 H (13.2-15.2) % Plt Count 136 L (140-440) K/mm3 PT (12.2-14.9) Sec. INR (0.87-1.13) Sodium 151 H (137-145) mmol/L Chloride 110.6 H (98-107) mmol/L BUN 43 H (7-17) mg/dL Creatinine 0.6 L (0.7-1.2) mg/dL Glucose 136 H (65-100) mg/dL POC Glucose 124 H (70-105) AST 170 H (5-40) units/L ALT 258 H (7-56) units/L Alkaline Phosphatase 199 H (35-129) units/L Albumin 3.0 L (3.9-5) g/dL 01/31/17 01/31/17 Range/Units 05:28 11:18 MCH (28-32) pg RDW (13.2-15.2) % Plt Count (140-440) K/mm3 PT (12.2-14.9) Sec. INR (0.87-1.13) Sodium (137-145) mmol/L Chloride (98-107) mmol/L BUN (7-17) mg/dL Creatinine (0.7-1.2) mg/dL Glucose (65-100) mg/dL POC Glucose 156 H 112 H (70-105) AST (5-40) units/L ALT (7-56) units/L Alkaline Phosphatase (35-129) units/L Albumin (3.9-5) g/dL
--- NOTE | 2017-01-31 13:48 | Progress Note ---
Assessment and Plan Assessment and plan: Patient is a 86 years old woman with h/o DM type 2, chronic atrial fibrillation (not on AC d/t fall risk and advanced dementia per Cardiology), diastolic heart failure (echo done at [facility] on 11/23/2016 showed EF 60 - 65%, mild LVH, grade III diastolic dysfunction, severe biatrial enlargement, aortic sclerosis without stenosis, mild AI, mild MR, mild TR), HTN, hypothyroidism, dementia, s/p PEG tube. Pt presented with c/o increased agitation and fever x 2 days. Upon admission, pt was found to have hypoxia requiring 30% FiO2, UTI, lactic acidosis, sepsis, elevated pro-BNP, suspected aspiration pneumonitis, transaminitis, uncontrolled DM, and suspected RLE ischemia. CXR shows mild cardiomegaly and pulmonary venous congestion. Pt was also found to be in AFib with RVR, HR 110-130s, and thus cardiology has been consulted. Pt's home medications include lopressor and digoxin. Dig level on admission was 0.4. Diagnoses -Acute metabolic encephalopathy, now alert, most likely at baseline, considering d/c restraints, will d/w nursing. due to Sepsis treat the underline cause Supportive care Suspected peritonitis ruled out Liver transaminitis: Abdominal ultrasound reviewed Abdomen ultrasound ordered Urine and blood Cultures collected thank you Started on empiric antibiotic treatment IV Rocephin Nothing by mouth IV fluid hydration Supportive care. Check ammonia level and PT/INR GI consulted-->1. Abnormal LFTs - etiology unclear. Doubt CBD stone, given CBD diameter and enzyme pattern, but would do MRCP if fails to improve. Otherwise, may be due to sepsis and low perfusion, and may respond as pt improves. No liver abnormality or abscess seen on U/S. - monitor LFTs - check hepatitis serologies - tx for sepsis Bilateral hydronephrosis: Consulted and discussed with neurology Dr. Caraballo Sepsis secondary to urinary tract infection. Urine and blood Cultures collected IV fluid resuscitation Started on IV Rocephin Ischemic right lower extremity VL LE venous Doppler ordered Vascular consulted===> per Vascular, "This pt presented to the hospital with AMS and new onset agitation. During her physical exam, she was noted to have a cool RLE. The pt has known A-fib, and with concerns of a possible embolic event , a vascular surgery consult was requested to further evaluate. An arterial duplex was ordered. The preliminary vascular lab study suggest chronic arterial disease with bilateral co-lateralization. The flows are similar when compared right to left. Given the low velocities, this could represent poor cardiac function. Do not recommend any arterial intervention at this point." Acute respiratory failure Started on Duoneb TID due to patients Oxygen supplement ABG as needed Supportive care Oxygen treatment Lactic acidosis Most likely due to sepsis We will repeat lactic acidosis Arterial fibrillation with RVR Admit to [facility] PT/INR Cardiology consulted-->Cardiology final recommendation: D/c digoxin. Cont Lopressor and cardizem, ASA 81 and statin. Long-term systemic anticoagulation in regards to atrial fibrillation was discontinued per pt's primary customer sales service manager several years ago d/t pt's advanced dementia, advanced age and high risk for falls. We agree that the pt is not an ideal candidate for long-term anticoagulation and her family also agrees with this assessment and wishes to remain off of systemic anticoagulation. Cont DVT prophylaxis. Currently stable cardiac status. Will see PRN. Uncontrolled diabetes mellitus Nothing by mouth Accu-Chek every 6 hours Sliding scale insulin/NovoLog Nutrition consulted Suspected aspiration pneumonitis Blood culture collected started on IV antibiotic Congestive heart failure, acute on chronic diastolic heart failure Elevated BNP Chest x-ray revealed mild cardiomegaly & pulmonary venous congestion but no CHF Echocardiogram ordered Cardiology-->Cardiology final recommendation: D/c digoxin. Cont Lopressor and cardizem, ASA 81 and statin. Long-term systemic anticoagulation in regards to atrial fibrillation was discontinued per pt's primary customer sales service manager several years ago d/t pt's advanced dementia, advanced age and high risk for falls. We agree that the pt is not an ideal candidate for long-term anticoagulation and her family also agrees with this assessment and wishes to remain off of systemic anticoagulation. Cont DVT prophylaxis. Currently stable cardiac status. Will see PRN. PEG tube peg-tube placement Consult to dietitian DVT prophylaxis Heparin Malignant hypertension: see customer sales service manager recommendation above History Interval history: Patient seen and examined. Follow up on current diagnosis/ams. Nonverbal, bp and hr is up. Imaging, old records, testing, labs, nursing notes reviewed. Hospitalist Physical - Physical exam Narrative exam: GEN: thin cachetic NAD, awake alert, nonverbal HEENT: NCAT, PERRL, EOMI, OP CLEAR NECK: SUPPLE, NO THYROMEGALY, NO JVD, NO LAD CVS: irregular irregular, NORMAL S1S2, reduced petal pulses right >left LUNGS/CHEST: faint bilateral crackles, NORMAL CHEST EXPANSION B, diminished AIR ENTRY B ABD: SOFT, NTND, GBS, NO REBOUND OR GUARDING EXT/SKIN: NO SIGNIFICANT EDEMA OR RASH MSK: FROM X 4 EXTREMITIES NEURO: CN 2-12 GROSSLY INTACT, NO new FOCAL DEFICITS PSY: Confused - Constitutional Vitals: Temp Pulse Resp BP Pulse Ox 98.0 F 76 24 159/91 96 01/31/17 11:52 01/31/17 11:52 01/31/17 11:52 01/31/17 11:52 01/31/17 11:52 General appearance: Present: no acute distress Results - Labs CBC & Chem 7: 01/31/17 05:02 01/31/17 05:02 Labs: Laboratory Last Values WBC 7.4 K/mm3 (4.5-11.0) 01/31/17 05:02 RBC 4.79 M/mm3 (3.65-5.03) 01/31/17 05:02 Hgb 12.2 gm/dl (10.1-14.3) 01/31/17 05:02 Hct 37.8 % (30.3-42.9) 01/31/17 05:02 MCV 79 fl (79-97) 01/31/17 05:02 MCH 25 pg (28-32) L 01/31/17 05:02 MCHC 32 % (30-34) 01/31/17 05:02 RDW 19.9 % (13.2-15.2) H 01/31/17 05:02 Plt Count 136 K/mm3 (140-440) L 01/31/17 05:02 Lymph % (Auto) 5.9 % (13.4-35.0) L 01/30/17 05:52 Hill % (Auto) 7.9 % (0.0-7.3) H 01/30/17 05:52 Eos % (Auto) 0.6 % (0.0-4.3) 01/30/17 05:52 Baso % (Auto) 0.4 % (0.0-1.8) 01/30/17 05:52 Lymph # 0.6 K/mm3 (1.2-5.4) L 01/30/17 05:52 Hill # 0.7 K/mm3 (0.0-0.8) 01/30/17 05:52 Eos # 0.1 K/mm3 (0.0-0.4) 01/30/17 05:52 Baso # 0.0 K/mm3 (0.0-0.1) 01/30/17 05:52 Seg Neutrophils % 85.2 % (40.0-70.0) H 01/30/17 05:52 Seg Neutrophils # 8.1 K/mm3 (1.8-7.7) H 01/30/17 05:52 PT 16.0 Sec. (12.2-14.9) H 01/30/17 14:35 INR 1.29 (0.87-1.13) H 01/30/17 14:35 APTT 28.0 Sec. (24.2-36.6) 01/29/17 10:14 POC ABG pH 7.387 (7.35-7.45) 01/29/17 08:47 POC ABG pCO2 52.5 (35-45) H 01/29/17 08:47 POC ABG pO2 121 (80-105) H 01/29/17 08:47 POC ABG HCO3 31.5 01/29/17 08:47 POC ABG Total CO2 33 01/29/17 08:47 POC ABG O2 Sat 99 01/29/17 08:47 POC ABG Base Excess 6 01/29/17 08:47 FiO2 30 % 01/29/17 08:47 Sodium 151 mmol/L (137-145) H 01/31/17 05:02 Potassium 3.9 mmol/L (3.6-5.0) 01/31/17 05:02 Chloride 110.6 mmol/L (98-107) H 01/31/17 05:02 Carbon Dioxide 29 mmol/L (22-30) D 01/31/17 05:02 Anion Gap 15 mmol/L 01/31/17 05:02 BUN 43 mg/dL (7-17) H 01/31/17 05:02 Creatinine 0.6 mg/dL (0.7-1.2) L 01/31/17 05:02 Estimated GFR > 60 ml/min 01/31/17 05:02 BUN/Creatinine Ratio 71.66 % 01/31/17 05:02 Glucose 136 mg/dL (65-100) H 01/31/17 05:02 POC Glucose 112 (70-105) H 01/31/17 11:18 Lactic Acid 2.70 mmol/L (0.7-2.0) H* 01/29/17 07:56 Calcium 8.7 mg/dL (8.4-10.2) 01/31/17 05:02 Magnesium 2.50 mg/dL (1.7-2.3) H 01/30/17 05:52 Total Bilirubin 0.70 mg/dL (0.1-1.2) 01/31/17 05:02 AST 170 units/L (5-40) H 01/31/17 05:02 ALT 258 units/L (7-56) H 01/31/17 05:02 Alkaline Phosphatase 199 units/L (35-129) H 01/31/17 05:02 Ammonia 45.0 umol/L (25-60) 01/29/17 13:38 NT-Pro-B Natriuret Pep 99513 pg/mL (0-900) H 01/29/17 07:05 Total Protein 6.5 g/dL (6.3-8.2) 01/31/17 05:02 Albumin 3.0 g/dL (3.9-5) L 01/31/17 05:02 Albumin/Globulin Ratio 0.9 % 01/31/17 05:02 TSH 3.560 mlU/mL (0.270-4.200) 01/30/17 05:52 Free T4 1.27 ng/dL (0.76-1.46) 01/30/17 05:52 Urine Color Red (Yellow) 01/29/17 06:24 Urine Turbidity Cloudy (Clear) 01/29/17 06:24 Urine pH 5.0 (5.0-7.0) 01/29/17 06:24 Ur Specific [place] 1.016 (1.003-1.030) 01/29/17 06:24 Urine Protein >500 mg/dL (Negative) 01/29/17 06:24 Urine Glucose (UA) Neg mg/dL (Negative) 01/29/17 06:24 Urine Ketones Neg mg/dL (Negative) 01/29/17 06:24 Urine Blood Lg (Negative) 01/29/17 06:24 Urine Nitrite Neg (Negative) 01/29/17 06:24 Urine Bilirubin Neg (Negative) 01/29/17 06:24 Urine Urobilinogen 2.0 mg/dL (<2.0) 01/29/17 06:24 Ur Leukocyte Esterase Lg (Negative) 01/29/17 06:24 Urine WBC (Auto) > 182.0 /HPF (0.0-6.0) H 01/29/17 06:24 Urine RBC (Auto) > 182.0 /HPF (0.0-6.0) 01/29/17 06:24 U Epithel Cells (Auto) 3.0 /HPF (0-13.0) 01/29/17 06:24 Urine Bacteria (Auto) 4+ /HPF (Negative) 01/29/17 06:24 Urine WBC Clumps 3+ /HPF 01/29/17 06:24 Urine Yeast (Budding) Few /HPF 01/29/17 06:24 Digoxin 0.4 ng/mL (0.9-2.0) L 01/29/17 09:25
[2017-01-31] MEDS ORDERED: SIMPLE SYRUP FEEDTUBE PRN ×2 (15:23)
[2017-01-31] MEDS ORDERED: PANCREAZE DR 10,500 UNIT FEEDTUBE PRN (15:23)
[2017-01-31] MEDS ORDERED: SODIUM BICARBONATE FEEDTUBE PRN (15:23)
[2017-01-31] MEDS: NAMENDA FEEDTUBE SCH (16:00)
--- NOTE | 2017-01-31 20:04 | Consultation ---
Past History Past Medical History: atrial fib, diabetes, heart failure, hypertension, hypothyroidism, other (PEG placement, dementia) Past Surgical History: Other (PEG) Social history: lives with family. denies: smoking, alcohol abuse, prescription drug abuse Family history: other (unable to assess) Medications and Allergies Allergies Allergy/AdvReac Type Severity Reaction Status Date / Time Iodinated Contrast Media - Allergy Itching Verified 05/25/15 11:08 IV Dye Home Medications Medication Instructions Recorded Confirmed Last Taken Type Metoprolol [Lopressor TAB] 50 mg FEEDTUBE BID 10/16/13 01/29/17 01/28/17 History Quetiapine Fumarate [SEROquel] 25 mg FEEDTUBE DAILY 10/16/13 01/29/17 01/28/17 History Rosuvastatin (Nf) [Crestor] 1 tab FEEDTUBE DAILY 10/16/13 01/29/17 01/28/17 History amLODIPine [Norvasc] 10 mg FEEDTUBE DAILY 10/16/13 01/29/17 01/28/17 History Aspirin BABY CHEW TAB 81 mg PO DAILY 01/09/16 01/29/17 01/28/17 History Levothyroxine 50 meq FEEDTUBE DAILY 01/09/16 01/29/17 01/28/17 History Active Meds: Active Medications Lipase/Protease/Amylase (Pancrecatalino Loaiza 10,500 Unit) 1 each FEEDTUBE PRN PRN PRN Reason: For Clogged Feeding Tube Ascorbic Acid (Vitamin C) 500 mg FEEDTUBE QDAY [facility] Last Admin: 01/31/17 11:27 Dose: 500 mg Aspirin (Baby Aspirin) 81 mg FEEDTUBE QDAY [facility] Last Admin: 01/31/17 11:26 Dose: 81 mg Atorvastatin Calcium (Lipitor) 40 mg PO QHS [facility] Last Admin: 01/30/17 22:20 Dose: 40 mg Bisacodyl (Dulcolax) 10 mg VA QDAY PRN PRN Reason: constipation unrelieved by MOM Dextrose (D50w (25gm)) 50 ml IV PRN PRN PRN Reason: Hypoglycemia Diltiazem HCl (Cardizem) 60 mg PO Q6HR [facility] Last Admin: 01/31/17 11:26 Dose: 60 mg Heparin Sodium (Porcine) (Heparin) 5,000 unit SUB-Q Q12HR [facility] Last Admin: 01/31/17 11:28 Dose: 5,000 unit Ceftriaxone Sodium (Rocephin/Ns 1 Gm/50 Ml) 1 gm in 50 mls @ 100 mls/hr IV Q24HR [facility] PRN Reason: Protocol Last Admin: 01/31/17 11:27 Dose: 100 mls/hr Insulin Aspart (Novolog) 0 units SUB-Q Q6HR EUGENE PRN Reason: Protocol Last Admin: 01/31/17 11:31 Dose: Not Given Memantine (Namenda (Nf)) 10 mg FEEDTUBE DAILY [facility] Last Admin: 01/31/17 16:00 Dose: 10 mg Metoprolol Tartrate (Lopressor) 50 mg FEEDTUBE TID [facility] Last Admin: 01/31/17 14:40 Dose: 50 mg Quetiapine Fumarate (Seroquel) 25 mg FEEDTUBE DAILY [facility] Last Admin: 01/31/17 11:26 Dose: 25 mg Simple Syrup (Simple Syrup) 15 ml FEEDTUBE PRN PRN PRN Reason: Hypoglycemia Simple Syrup (Simple Syrup) 30 ml FEEDTUBE PRN PRN PRN Reason: Hypoglycemia Sodium Bicarbonate (Sodium Bicarbonate) 325 mg FEEDTUBE PRN PRN PRN Reason: For Clogged Feeding Tube Exam - Constitutional Vitals: Temp Pulse Resp BP Pulse Ox 97.9 F 72 24 154/99 97 01/31/17 16:44 01/31/17 16:44 01/31/17 16:44 01/31/17 16:44 01/31/17 16:44 Results - Labs CBC & Chem 7: 02/01/17 06:06 02/01/17 06:06 Labs: Abnormal lab results 01/31/17 01/31/17 01/31/17 Range/Units 00:08 05:02 05:02 MCH 25 L (28-32) pg RDW 19.9 H (13.2-15.2) % Plt Count 136 L (140-440) K/mm3 Sodium 151 H (137-145) mmol/L Chloride 110.6 H (98-107) mmol/L BUN 43 H (7-17) mg/dL Creatinine 0.6 L (0.7-1.2) mg/dL Glucose 136 H (65-100) mg/dL POC Glucose 124 H (70-105) AST 170 H (5-40) units/L ALT 258 H (7-56) units/L Alkaline Phosphatase 199 H (35-129) units/L Albumin 3.0 L (3.9-5) g/dL 01/31/17 01/31/17 Range/Units 05:28 11:18 MCH (28-32) pg RDW (13.2-15.2) % Plt Count (140-440) K/mm3 Sodium (137-145) mmol/L Chloride (98-107) mmol/L BUN (7-17) mg/dL Creatinine (0.7-1.2) mg/dL Glucose (65-100) mg/dL POC Glucose 156 H 112 H (70-105) AST (5-40) units/L ALT (7-56) units/L Alkaline Phosphatase (35-129) units/L Albumin (3.9-5) g/dL Assessment and Plan TEX HYDRO UTI - Cr nl, Afeb, WBC nl - pt non communicative - CT Urogram
[2017-02-01] MEDS: APRESOLINE IV PRN (04:40)
[2017-02-01] MEDS: CARDIZEM PO SCH ×4 (05:00→23:29)
[2017-02-01] MEDS: NOVOLOG SUB-Q SCH ×4 (05:06→23:29)
[2017-02-01 06:57] LABS: Hematocrit 40.9 % (30.3-42.9); Mean Corpuscular HGB Conc 32 % (30-34); Mean Corpuscular Volume 79 fl (79-97); Platelet Count 155 K/mm3 (140-440); Red Blood Count 5.16 M/mm3 (3.65-5.03); Red Cell Distribution Width 19.9 % (13.2-15.2); White Blood Count 8.6 K/mm3 (4.5-11.0)
[2017-02-01 06:59] LABS: Mean Corpuscular Hemoglobin 25 pg (28-32)
[2017-02-01 07:09] LABS: Anion Gap 15 mmol/L; Blood Urea Nitrogen 27 mg/dL (7-17); Calcium 9.1 mg/dL (8.4-10.2); Carbon Dioxide 30 mmol/L (22-30); Chloride 107.7 mmol/L (98-107); Glucose 130 mg/dL (65-100); Potassium 3.7 mmol/L (3.6-5.0); Sodium 149 mmol/L (137-145)
[2017-02-01] MEDS: LOPRESSOR FEEDTUBE SCH ×3 (08:23→21:16)
[2017-02-01 09:16] LABS: Albumin 3.2 g/dL (3.9-5); Albumin/Globulin Ratio 0.8 %; Bilirubin,Direct 0.3 mg/dL (0-0.2); Bilirubin,Indirect 0.5 mg/dL; Bilirubin,Total 0.8 mg/dL (0.1-1.2)
[2017-02-01] MEDS: ROCEPHIN/NS 1 GM/50 ML 1 GM/50 ML BAG IV SCH (10:25)
[2017-02-01] MEDS: VITAMIN C FEEDTUBE SCH (10:26)
[2017-02-01] MEDS: HEPARIN SUB-Q SCH ×2 (10:27→21:17)
[2017-02-01] MEDS: BABY ASPIRIN FEEDTUBE SCH (10:27)
--- NOTE | 2017-02-01 10:46 | Gastroenterology Progress Note ---
<TYESHA BLEDSOE - Last Filed: 02/01/17 10:46> Assessment and Plan 1.elevated LFTs -LFTs slightly improved today- AST 124, ALT 231, Alk phos 198 -etiology unclear- possibly due to sepsis and low perfusion vs CBD stone (doubt due to CBD diameter and enzyme pattern -hepatitis panel pending -will order MRCP today -continue supportive care -tx for sepsis -will follow Subjective Date of service: 02/01/17 Principal diagnosis: elevated LFTs Interval history: Patient resting in bed, in restraints. No acute distress. No family at bedside. Awake, alert, and nonverbal. Objective - Constitutional Vitals: Temp Pulse Resp BP Pulse Ox 97.8 F 81 16 177/91 96 02/01/17 08:50 02/01/17 08:50 02/01/17 08:50 02/01/17 08:50 02/01/17 08:50 General appearance: no acute distress, other (awake, alert, nonverbal) - Neck Neck: supple - Respiratory Respiratory: bilateral: diminished - Cardiovascular Rhythm: regular Heart Sounds: Present: S1 & S2 - Gastrointestinal General gastrointestinal: Present: soft, non-distended, normal bowel sounds - Labs CBC & Chem 7: 02/01/17 06:06 02/01/17 06:06 Labs: Laboratory Results - last 24 hr 01/31/17 01/31/17 02/01/17 11:18 23:14 05:03 WBC RBC Hgb Hct MCV MCH MCHC RDW Plt Count Sodium Potassium Chloride Carbon Dioxide Anion Gap BUN Creatinine Estimated GFR BUN/Creatinine Ratio Glucose POC Glucose 112 H 116 H 161 H Calcium Magnesium Total Bilirubin Direct Bilirubin Indirect Bilirubin AST ALT Alkaline Phosphatase Total Protein Albumin Albumin/Globulin Ratio 02/01/17 02/01/17 02/01/17 06:06 06:06 06:06 WBC 8.6 RBC 5.16 H Hgb 13.0 Hct 40.9 MCV 79 MCH 25 L MCHC 32 RDW 19.9 H Plt Count 155 Sodium 149 H Potassium 3.7 Chloride 107.7 H Carbon Dioxide 30 Anion Gap 15 BUN 27 H Creatinine 0.5 L Estimated GFR > 60 BUN/Creatinine Ratio 54.00 Glucose 130 H POC Glucose Calcium 9.1 Magnesium 2.20 Total Bilirubin 0.80 Direct Bilirubin 0.3 H Indirect Bilirubin 0.5 AST 124 H ALT 231 H Alkaline Phosphatase 198 H Total Protein 7.0 Albumin 3.2 L Albumin/Globulin Ratio 0.8 02/01/17 06:26 WBC RBC Hgb Hct MCV MCH MCHC RDW Plt Count Sodium Potassium Chloride Carbon Dioxide Anion Gap BUN Creatinine Estimated GFR BUN/Creatinine Ratio Glucose POC Glucose 138 H Calcium Magnesium Total Bilirubin Direct Bilirubin Indirect Bilirubin AST ALT Alkaline Phosphatase Total Protein Albumin Albumin/Globulin Ratio <NARAYAN GAMBLE R - Last Filed: 02/01/17 12:45> Assessment and Plan Elevation due to sepsis most likely as above. Discussed with Dr. Frye. Objective - Constitutional Vitals: Temp Pulse Resp BP Pulse Ox 98.0 F 87 16 176/114 96 02/01/17 11:59 02/01/17 11:59 02/01/17 11:59 02/01/17 11:59 02/01/17 11:59 - Labs CBC & Chem 7: 02/01/17 06:06 02/01/17 06:06 Labs: Laboratory Results - last 24 hr 01/31/17 02/01/17 02/01/17 23:14 05:03 06:06 WBC 8.6 RBC 5.16 H Hgb 13.0 Hct 40.9 MCV 79 MCH 25 L MCHC 32 RDW 19.9 H Plt Count 155 Sodium Potassium Chloride Carbon Dioxide Anion Gap BUN Creatinine Estimated GFR BUN/Creatinine Ratio Glucose POC Glucose 116 H 161 H Calcium Magnesium Total Bilirubin Direct Bilirubin Indirect Bilirubin AST ALT Alkaline Phosphatase Total Protein Albumin Albumin/Globulin Ratio 02/01/17 02/01/17 02/01/17 06:06 06:06 06:26 WBC RBC Hgb Hct MCV MCH MCHC RDW Plt Count Sodium 149 H Potassium 3.7 Chloride 107.7 H Carbon Dioxide 30 Anion Gap 15 BUN 27 H Creatinine 0.5 L Estimated GFR > 60 BUN/Creatinine Ratio 54.00 Glucose 130 H POC Glucose 138 H Calcium 9.1 Magnesium 2.20 Total Bilirubin 0.80 Direct Bilirubin 0.3 H Indirect Bilirubin 0.5 AST 124 H ALT 231 H Alkaline Phosphatase 198 H Total Protein 7.0 Albumin 3.2 L Albumin/Globulin Ratio 0.8 02/01/17 11:42 WBC RBC Hgb Hct MCV MCH MCHC RDW Plt Count Sodium Potassium Chloride Carbon Dioxide Anion Gap BUN Creatinine Estimated GFR BUN/Creatinine Ratio Glucose POC Glucose 155 H Calcium Magnesium Total Bilirubin Direct Bilirubin Indirect Bilirubin AST ALT Alkaline Phosphatase Total Protein Albumin Albumin/Globulin Ratio
--- NOTE | 2017-02-01 11:26 | Progress Note ---
Assessment and Plan TEX HYDRO UTI - 01/31/17 - Cr nl, Afeb, WBC nl - pt non communicative - CT Urogram 02/01/17 - CT today - Cr nl Subjective Date of service: 02/01/17 Principal diagnosis: elevated LFTs Interval history: resti Objective - Constitutional Vitals: Vital Signs - 12hr 01/31/17 02/01/17 02/01/17 23:38 04:00 08:23 Temperature 98.7 F 97.6 F Pulse Rate 77 76 74 Respiratory 18 18 Rate Blood Pressure 173/97 181/84 181/84 O2 Sat by Pulse 98 98 Oximetry 02/01/17 08:50 Temperature 97.8 F Pulse Rate 81 Respiratory 16 Rate Blood Pressure 177/91 O2 Sat by Pulse 96 Oximetry - Respiratory Respiratory effort: normal - Gastrointestinal General gastrointestinal: Present: soft - Labs CBC & Chem 7: 02/01/17 06:06 02/01/17 06:06 Labs: Abnormal lab results 01/31/17 01/31/17 02/01/17 Range/Units 11:18 23:14 05:03 RBC (3.65-5.03) M/mm3 MCH (28-32) pg RDW (13.2-15.2) % Sodium (137-145) mmol/L Chloride (98-107) mmol/L BUN (7-17) mg/dL Creatinine (0.7-1.2) mg/dL Glucose (65-100) mg/dL POC Glucose 112 H 116 H 161 H (70-105) Direct Bilirubin (0-0.2) mg/dL AST (5-40) units/L ALT (7-56) units/L Alkaline Phosphatase (35-129) units/L Albumin (3.9-5) g/dL 02/01/17 02/01/17 02/01/17 Range/Units 06:06 06:06 06:06 RBC 5.16 H (3.65-5.03) M/mm3 MCH 25 L (28-32) pg RDW 19.9 H (13.2-15.2) % Sodium 149 H (137-145) mmol/L Chloride 107.7 H (98-107) mmol/L BUN 27 H (7-17) mg/dL Creatinine 0.5 L (0.7-1.2) mg/dL Glucose 130 H (65-100) mg/dL POC Glucose (70-105) Direct Bilirubin 0.3 H (0-0.2) mg/dL AST 124 H (5-40) units/L ALT 231 H (7-56) units/L Alkaline Phosphatase 198 H (35-129) units/L Albumin 3.2 L (3.9-5) g/dL // Range/Units 06:26 RBC (3.65-5.03) M/mm3 MCH (28-32) pg RDW (13.2-15.2) % Sodium (137-145) mmol/L Chloride (98-107) mmol/L BUN (7-17) mg/dL Creatinine (0.7-1.2) mg/dL Glucose (65-100) mg/dL POC Glucose 138 H (70-105) Direct Bilirubin (0-0.2) mg/dL AST (5-40) units/L ALT (7-56) units/L Alkaline Phosphatase (35-129) units/L Albumin (3.9-5) g/dL
[2017-02-01] MEDS: NAMENDA FEEDTUBE SCH (11:41)
--- NOTE | 2017-02-01 13:39 | Event Note ---
Date: 02/01/17 Called by RN for possible run of VT noted on telemetry. Tele reviewed and 32 beat run of suspected atrial fib aberrancy noted. Pt with no apparent distress, VSS, lytes WNL. Cont present management. Tito JACKSON NP / DR. LIBAN WESLEY
--- NOTE | 2017-02-01 15:13 | Cat Scan Report ---
CT scan of abdomen and pelvis without IV contrast: History: CT urogram hydronephrosis. Findings: Faint groundglass lungs bilaterally with right pleural effusion. Circumscribed hypodensity measuring 1.8 cm diameter in liver probably a cyst. Normal gallbladder. No intrahepatic duct dilatation. Normal pancreas and spleen. Normal adrenals. Right hydronephrosis. Stent in dilated left ureter and pelvis of left kidney. Normal bladder. No free intraperitoneal fluid. No evidence of adenopathy. Fecal impaction in the rectum. Perirectal adipose tissue appears normal. Extensive fecal matter throughout the colon with moderate distended gaseous colon. No small bowel distention. Impression: Bibasilar groundglass lungs with right pleural effusion. Hypodensities liver probably cysts. Stable left ureter stent. Dilated right ureter. Fecal impaction in rectum with moderate to large volume stool and air in colon.
--- NOTE | 2017-02-01 17:39 | Progress Note ---
Subjective Date of service: 02/01/17 Principal diagnosis: elevated LFTs Interval history: Patient is a 86 years old Erika [place] female with past medical history of dementia hypertension, hyperlipidemia, diabetes mellitus, A. fib and Peg tube Placement, who present to the emergency department with altered mental status. Patient very lethargic, and altered mental status therefore unable to obtain history. Per chart, daughter reports patient subjective fevers and has been agitated for the past 2 days. History obtained from ER physician and charts. female family x 3 at bedside CTAP (02-01-17) rt stent, fecal empaction family does not know when or where placed) if ok for cardiac standpoint (needs clearance for anesthesia) needs cysto , stent exchange (stent echange q 5-6 months) TEX HYDRO UTI - Cr nl, Afeb, WBC nl - pt non communicative - CT Urogram Objective - Constitutional Vitals: Vital Signs - 12hr 02/01/17 02/01/17 02/01/17 08:23 08:50 11:41 Temperature 97.8 F Pulse Rate 74 81 87 Respiratory 16 Rate Blood Pressure 181/84 177/91 176/114 O2 Sat by Pulse 96 Oximetry 02/01/17 02/01/17 02/01/17 11:59 15:58 16:58 Temperature 98.0 F 98.2 F Pulse Rate 87 68 67 Respiratory 16 18 Rate Blood Pressure 176/114 166/92 137/77 O2 Sat by Pulse 96 97 Oximetry - Labs CBC & Chem 7: 02/01/17 06:06 02/01/17 06:06 Labs: Abnormal lab results 01/31/17 02/01/17 02/01/17 Range/Units 23:14 05:03 06:06 RBC 5.16 H (3.65-5.03) M/mm3 MCH 25 L (28-32) pg RDW 19.9 H (13.2-15.2) % Sodium (137-145) mmol/L Chloride (98-107) mmol/L BUN (7-17) mg/dL Creatinine (0.7-1.2) mg/dL Glucose (65-100) mg/dL POC Glucose 116 H 161 H (70-105) Phosphorus (2.5-4.5) mg/dL Direct Bilirubin (0-0.2) mg/dL AST (5-40) units/L ALT (7-56) units/L Alkaline Phosphatase (35-129) units/L Albumin (3.9-5) g/dL 02/01/17 02/01/17 02/01/17 Range/Units 06:06 06:06 06:06 RBC (3.65-5.03) M/mm3 MCH (28-32) pg RDW (13.2-15.2) % Sodium 149 H (137-145) mmol/L Chloride 107.7 H (98-107) mmol/L BUN 27 H (7-17) mg/dL Creatinine 0.5 L (0.7-1.2) mg/dL Glucose 130 H (65-100) mg/dL POC Glucose (70-105) Phosphorus 2.10 L (2.5-4.5) mg/dL Direct Bilirubin 0.3 H (0-0.2) mg/dL AST 124 H (5-40) units/L ALT 231 H (7-56) units/L Alkaline Phosphatase 198 H (35-129) units/L Albumin 3.2 L (3.9-5) g/dL 02/01/17 02/01/17 Range/Units 06:26 11:42 RBC (3.65-5.03) M/mm3 MCH (28-32) pg RDW (13.2-15.2) % Sodium (137-145) mmol/L Chloride (98-107) mmol/L BUN (7-17) mg/dL Creatinine (0.7-1.2) mg/dL Glucose (65-100) mg/dL POC Glucose 138 H 155 H (70-105) Phosphorus (2.5-4.5) mg/dL Direct Bilirubin (0-0.2) mg/dL AST (5-40) units/L ALT (7-56) units/L Alkaline Phosphatase (35-129) units/L Albumin (3.9-5) g/dL
--- NOTE | 2017-02-01 19:23 | Progress Note ---
Assessment and Plan Assessment and plan: 86 years old -[place]oc[place] female with Liliane. fib, hypertension, diabetes, hyperlipidemia, dementia status post PEG tube placement, brought to ER for an objective fever and worsening mental status 1. Sepsis due to UTI Cultures obtained and started on antibiotics/IV fluids 2. Lactic acidosis Likely due to sepsis 3. Acute respiratory failure Supplemental oxygen, bronchodilators 4. Acute toxic metabolic encephalopathy superimposed on baseline dementia Treat underlying conditions/supportive care 5. Transaminitis No abnormality on US Check hepatitis panel GI consulted and plans MRCP 6. Suspected peritonitis - ruled out 7. Suspected right lower extremity ischemia - rule out based on Doppler and vascular surgery evaluation 8. Diabetes Long-acting insulin along with SSI based on Accu-Cheks 9. A. fib Cardiology consulted and regimen adjusted - digoxin discontinued, on Lopressor and Cardizem along with aspirin; not a candidate for anticoagulation 10. Congestive heart failure - acute on chronic diastolic On BB, CCB per cards recommendation 11. Bilateral hydronephrosis CT showed R stent Neurology recommended systolic and stent exchange (but would like to have cardiology clearance) 12. PEG placement Local care Tube feeding 13. Dementia Namenda, supportive care 14. GI/DVT prophylaxis History Interval history: nonverbal, no events overnight; this morning suspected run of VT on telemetry which was reviewed by cardiology and food service assistant with Sweta phipps aberrancy Hospitalist Physical - Constitutional Vitals: Temp Pulse Resp BP Pulse Ox 98.2 F 67 18 137/77 97 02/01/17 16:58 02/01/17 16:58 02/01/17 16:58 02/01/17 16:58 02/01/17 16:58 General appearance: Present: no acute distress - EENT Eyes: Present: PERRL, EOM intact. Absent: scleral icterus, conjunctival injection - Neck Neck: Present: supple. Absent: enlarged thyroid, masses or JVD - Respiratory Respiratory effort: normal Respiratory: bilateral: CTA, negative: rhonchi, wheezing - Cardiovascular Rhythm: irregularly irregular Heart Sounds: Present: S1 & S2. Absent: systolic murmur - Extremities Extremities: no ischemia Extremity abnormal: pulses diminished - Abdominal General gastrointestinal: soft, non-tender, non-distended, normal bowel sounds - Psychiatric Psychiatric: no intact judgment & insight, no memory intact, other (nonverbal) - Neurologic Neurologic: moves all extremities Results - Labs CBC & Chem 7: 02/02/17 07:34 02/03/17 06:09 Labs: Laboratory Last Values WBC 8.6 K/mm3 (4.5-11.0) 02/01/17 06:06 RBC 5.16 M/mm3 (3.65-5.03) H 02/01/17 06:06 Hgb 13.0 gm/dl (10.1-14.3) 02/01/17 06:06 Hct 40.9 % (30.3-42.9) 02/01/17 06:06 MCV 79 fl (79-97) 02/01/17 06:06 MCH 25 pg (28-32) L 02/01/17 06:06 MCHC 32 % (30-34) 02/01/17 06:06 RDW 19.9 % (13.2-15.2) H 02/01/17 06:06 Plt Count 155 K/mm3 (140-440) 02/01/17 06:06 Lymph % (Auto) 5.9 % (13.4-35.0) L 01/30/17 05:52 [place] % (Auto) 7.9 % (0.0-7.3) H 01/30/17 05:52 Eos % (Auto) 0.6 % (0.0-4.3) 01/30/17 05:52 Baso % (Auto) 0.4 % (0.0-1.8) 01/30/17 05:52 Lymph # 0.6 K/mm3 (1.2-5.4) L 01/30/17 05:52 [place] # 0.7 K/mm3 (0.0-0.8) 01/30/17 05:52 Eos # 0.1 K/mm3 (0.0-0.4) 01/30/17 05:52 Baso # 0.0 K/mm3 (0.0-0.1) 01/30/17 05:52 Seg Neutrophils % 85.2 % (40.0-70.0) H 01/30/17 05:52 Seg Neutrophils # 8.1 K/mm3 (1.8-7.7) H 01/30/17 05:52 PT 16.0 Sec. (12.2-14.9) H 01/30/17 14:35 INR 1.29 (0.87-1.13) H 01/30/17 14:35 APTT 28.0 Sec. (24.2-36.6) 01/29/17 10:14 POC ABG pH 7.387 (7.35-7.45) 01/29/17 08:47 POC ABG pCO2 52.5 (35-45) H 01/29/17 08:47 POC ABG pO2 121 (80-105) H 01/29/17 08:47 POC ABG HCO3 31.5 01/29/17 08:47 POC ABG Total CO2 33 01/29/17 08:47 POC ABG O2 Sat 99 01/29/17 08:47 POC ABG Base Excess 6 01/29/17 08:47 FiO2 30 % 01/29/17 08:47 Sodium 149 mmol/L (137-145) H 02/01/17 06:06 Potassium 3.7 mmol/L (3.6-5.0) 02/01/17 06:06 Chloride 107.7 mmol/L (98-107) H 02/01/17 06:06 Carbon Dioxide 30 mmol/L (22-30) 02/01/17 06:06 Anion Gap 15 mmol/L 02/01/17 06:06 BUN 27 mg/dL (7-17) H 02/01/17 06:06 Creatinine 0.5 mg/dL (0.7-1.2) L 02/01/17 06:06 Estimated GFR > 60 ml/min 02/01/17 06:06 BUN/Creatinine Ratio 54.00 % 02/01/17 06:06 Glucose 130 mg/dL (65-100) H 02/01/17 06:06 POC Glucose 73 (70-105) 02/01/17 18:12 Lactic Acid 2.70 mmol/L (0.7-2.0) H* 01/29/17 07:56 Calcium 9.1 mg/dL (8.4-10.2) 02/01/17 06:06 Phosphorus 2.10 mg/dL (2.5-4.5) L 02/01/17 06:06 Magnesium 2.20 mg/dL (1.7-2.3) 02/01/17 06:06 Total Bilirubin 0.80 mg/dL (0.1-1.2) 02/01/17 06:06 Direct Bilirubin 0.3 mg/dL (0-0.2) H 02/01/17 06:06 Indirect Bilirubin 0.5 mg/dL 02/01/17 06:06 AST 124 units/L (5-40) H 02/01/17 06:06 ALT 231 units/L (7-56) H 02/01/17 06:06 Alkaline Phosphatase 198 units/L (35-129) H 02/01/17 06:06 Ammonia 45.0 umol/L (25-60) 01/29/17 13:38 NT-Pro-B Natriuret Pep 99184 pg/mL (0-900) H 01/29/17 07:05 Total Protein 7.0 g/dL (6.3-8.2) 02/01/17 06:06 Albumin 3.2 g/dL (3.9-5) L 02/01/17 06:06 Albumin/Globulin Ratio 0.8 % 02/01/17 06:06 TSH 3.560 mlU/mL (0.270-4.200) 01/30/17 05:52 Free T4 1.27 ng/dL (0.76-1.46) 01/30/17 05:52 Urine Color Red (Yellow) 01/29/17 06:24 Urine Turbidity Cloudy (Clear) 01/29/17 06:24 Urine pH 5.0 (5.0-7.0) 01/29/17 06:24 Ur Specific [place] 1.016 (1.003-1.030) 01/29/17 06:24 Urine Protein >500 mg/dL (Negative) 01/29/17 06:24 Urine Glucose (UA) Neg mg/dL (Negative) 01/29/17 06:24 Urine Ketones Neg mg/dL (Negative) 01/29/17 06:24 Urine Blood Lg (Negative) 01/29/17 06:24 Urine Nitrite Neg (Negative) 01/29/17 06:24 Urine Bilirubin Neg (Negative) 01/29/17 06:24 Urine Urobilinogen 2.0 mg/dL (<2.0) 01/29/17 06:24 Ur Leukocyte Esterase Lg (Negative) 01/29/17 06:24 Urine WBC (Auto) > 182.0 /HPF (0.0-6.0) H 01/29/17 06:24 Urine RBC (Auto) > 182.0 /HPF (0.0-6.0) 01/29/17 06:24 U Epithel Cells (Auto) 3.0 /HPF (0-13.0) 01/29/17 06:24 Urine Bacteria (Auto) 4+ /HPF (Negative) 01/29/17 06:24 Urine WBC Clumps 3+ /HPF 01/29/17 06:24 Urine Yeast (Budding) Few /HPF 01/29/17 06:24 Digoxin 0.4 ng/mL (0.9-2.0) L 01/29/17 09:25
[2017-02-02] MEDS: CARDIZEM PO SCH ×3 (05:24→19:02)
[2017-02-02] MEDS: NOVOLOG SUB-Q SCH ×3 (06:12→17:21)
[2017-02-02 08:17] LABS: Hematocrit 42.5 % (30.3-42.9); Hemoglobin 13.2 gm/dl (10.1-14.3); Mean Corpuscular HGB Conc 31 % (30-34); Mean Corpuscular Volume 79 fl (79-97); Platelet Count 157 K/mm3 (140-440); Red Blood Count 5.37 M/mm3 (3.65-5.03); White Blood Count 6.7 K/mm3 (4.5-11.0)
[2017-02-02 08:22] LABS: Mean Corpuscular Hemoglobin 25 pg (28-32)
--- NOTE | 2017-02-02 08:32 | Gastroenterology Progress Note ---
Assessment and Plan 1. Elevated liver enzymes - mixed pattern (primarily hepatocellular) of unclear etiology. Pt with UTI/sepsis, HD stable. No signs of biliary dilatation on US or CT scan, however MRCP pending to further r/o biliary obstruction. based on pattern and presentation, most likely ddx includes sepsis, drug/medication induced liver injury, or possibly congestive hepatopathy -f/u MRCP -monitor daily liver enzymes -management of sepsis per primary team Subjective Date of service: 02/02/17 Principal diagnosis: elevated LFTs Interval history: pt seen and examined. non-verbal, no events noted overnight. no family at bedside. Objective - Exam Narrative Exam: Gen: elderly female, non-verbal, NAD Mouth: dry mucous membranes CV: RRR Lungs: ctab, non labored abd: soft, nd, +bs Neuro: oriented x 0 - Constitutional Vitals: Temp Pulse Resp BP Pulse Ox 97.8 F 75 20 132/86 91 02/02/17 08:00 02/02/17 08:00 02/02/17 08:00 02/02/17 08:00 02/02/17 08:00 - Labs CBC & Chem 7: 02/02/17 07:34 02/01/17 06:06 Labs: Laboratory Results - last 24 hr 02/01/17 02/01/17 02/01/17 06:06 06:06 11:42 WBC RBC Hgb Hct MCV MCH MCHC RDW Plt Count POC Glucose 155 H Phosphorus 2.10 L Total Bilirubin 0.80 Direct Bilirubin 0.3 H Indirect Bilirubin 0.5 AST 124 H ALT 231 H Alkaline Phosphatase 198 H Total Protein 7.0 Albumin 3.2 L Albumin/Globulin Ratio 0.8 02/01/17 02/01/17 02/02/17 18:12 23:22 05:34 WBC RBC Hgb Hct MCV MCH MCHC RDW Plt Count POC Glucose 73 127 H 72 Phosphorus Total Bilirubin Direct Bilirubin Indirect Bilirubin AST ALT Alkaline Phosphatase Total Protein Albumin Albumin/Globulin Ratio 02/02/17 07:34 WBC 6.7 RBC 5.37 H Hgb 13.2 Hct 42.5 MCV 79 MCH 25 L MCHC 31 RDW 20.0 H Plt Count 157 POC Glucose Phosphorus Total Bilirubin Direct Bilirubin Indirect Bilirubin AST ALT Alkaline Phosphatase Total Protein Albumin Albumin/Globulin Ratio
[2017-02-02 08:55] LABS: Anion Gap 17 mmol/L; Blood Urea Nitrogen 16 mg/dL (7-17); Calcium 8.7 mg/dL (8.4-10.2); Carbon Dioxide 28 mmol/L (22-30); Chloride 102.7 mmol/L (98-107); Glucose 93 mg/dL (65-100); Potassium 3.7 mmol/L (3.6-5.0); Sodium 144 mmol/L (137-145)
[2017-02-02 09:26] LABS: Albumin 3.4 g/dL (3.9-5); Bilirubin,Direct 0.3 mg/dL (0-0.2); Bilirubin,Indirect 0.7 mg/dL; Total Protein 6.8 g/dL (6.3-8.2)
[2017-02-02] MEDS: HEPARIN SUB-Q SCH ×2 (10:30→22:10)
[2017-02-02] MEDS: LOPRESSOR FEEDTUBE SCH ×2 (14:14→22:11)
[2017-02-02] MEDS: BABY ASPIRIN FEEDTUBE SCH (14:14)
[2017-02-02] MEDS: ROCEPHIN/NS 1 GM/50 ML 1 GM/50 ML BAG IV SCH (14:15)
[2017-02-02] MEDS: VITAMIN C FEEDTUBE SCH (14:15)
[2017-02-02] MEDS: NAMENDA FEEDTUBE SCH (14:34)
--- NOTE | 2017-02-02 16:01 | Magnetic Resonance Report ---
FINAL REPORT PROCEDURE: MR ABDOMEN MRCP TECHNIQUE: Magnetic resonance cholangiopancreatography of the biliary system was performed without paramagnetic contrast. The original data was reconstructed in 3-dimensions. Magnetic resonance imaging of the abdomen was performed using standard pulse sequences without contrast material. HISTORY: elevated LFTs COMPARISON: CT 02/01/2017 FINDINGS: Study is very limited by patient motion artifact Liver: Limited evaluation of the liver parenchyma. There is an ovoid high T2 and low T1 signal lesion at the hepatic dome which measures up to 17 millimeters, likely a cyst. Abutting or possibly projecting off the superior border of the hepatic dome there is a predominantly rounded large heterogeneous high T1 and intermediate signal T2 mass, which measures 5.2 centimeters craniocaudal x 5.7 centimeters transverse x 6.8 centimeters AP. It is uncertain as to whether this is projecting off the liver or possibly related to the right adrenal gland. The right adrenal gland is not clearly separately identified Intrahepatic bile ducts: Grossly unremarkable Extrahepatic bile ducts: Very limited evaluation. No gross dilatation is seen, however study is nondiagnostic to evaluate for filling defects Gallbladder: Low signal material is seen layering within the gallbladder lumen, likely related to gallstones Pancreatic ducts: Normal. Bile duct filling defects: Nondiagnostic evaluation for filling defects Note is made of left hydroureteronephrosis. Stent is seen within the left ureter. Right pleural effusion is noted. There is susceptibility artifact secondary to gastrostomy tube. Prominent heart size. Trace free intraperitoneal fluid is present. Large volume of stool is noted throughout the colon. IMPRESSION: Study is very limited due to patient motion artifact. However there appears to be a rounded mass either projecting from or abutting the hepatic dome, which measures up to 6.8 centimeters. This may be projecting off the liver dome or possibly related to an adrenal mass. CT or MRI with contrast could be obtained for further evaluation Cholelithiasis. Limited evaluation of the biliary ducts. No gross biliary ductal dilatation is seen. There is nondiagnostic evaluation for biliary duct filling defects however.
--- NOTE | 2017-02-02 20:44 | Progress Note ---
Assessment and Plan Assessment and plan: 86 years old -[place] female with A. fib, hypertension, diabetes, hyperlipidemia, dementia status post PEG tube placement, brought to ER for an objective fever and worsening mental status 1. Sepsis due to UTI Cultures obtained and started on antibiotics/IV fluids 2. Lactic acidosis Likely due to sepsis 3. Acute respiratory failure Supplemental oxygen, bronchodilators 4. Acute toxic metabolic encephalopathy superimposed on baseline dementia Treat underlying conditions/supportive care 5. Transaminitis No abnormality on US Check hepatitis panel GI consulted and plans MRCP 6. Suspected peritonitis - ruled out 7. Suspected right lower extremity ischemia - rule out based on Doppler and vascular surgery evaluation 8. Diabetes Long-acting insulin along with SSI based on Accu-Cheks 9. A. fib Cardiology consulted and regimen adjusted - digoxin discontinued, on Lopressor and Cardizem along with aspirin; not a candidate for anticoagulation 10. Congestive heart failure - acute on chronic diastolic On BB, CCB per cards recommendation 11. Bilateral hydronephrosis CT showed R stent Neurology recommended systolic and stent exchange (but would like to have cardiology clearance) 12. PEG placement Local care 13. Dementia Namenda, supportive care 14. Malnutrition 2 feeding per dietitian recommendation 15. GI/DVT prophylaxis Hospitalist Physical - Constitutional Vitals: Temp Pulse Resp BP Pulse Ox 98.4 F 80 30 H 123/68 95 02/02/17 19:31 02/02/17 19:31 02/02/17 19:31 02/02/17 19:31 02/02/17 19:31 General appearance: Present: no acute distress Results - Labs CBC & Chem 7: 02/02/17 07:34 02/03/17 06:09 Labs: Laboratory Last Values WBC 6.7 K/mm3 (4.5-11.0) 02/02/17 07:34 RBC 5.37 M/mm3 (3.65-5.03) H 02/02/17 07:34 Hgb 13.2 gm/dl (10.1-14.3) 02/02/17 07:34 Hct 42.5 % (30.3-42.9) 02/02/17 07:34 MCV 79 fl (79-97) 02/02/17 07:34 MCH 25 pg (28-32) L 02/02/17 07:34 MCHC 31 % (30-34) 02/02/17 07:34 RDW 20.0 % (13.2-15.2) H 02/02/17 07:34 Plt Count 157 K/mm3 (140-440) 02/02/17 07:34 Lymph % (Auto) 5.9 % (13.4-35.0) L 01/30/17 05:52 [place] % (Auto) 7.9 % (0.0-7.3) H 01/30/17 05:52 Eos % (Auto) 0.6 % (0.0-4.3) 01/30/17 05:52 Baso % (Auto) 0.4 % (0.0-1.8) 01/30/17 05:52 Lymph # 0.6 K/mm3 (1.2-5.4) L 01/30/17 05:52 [place] # 0.7 K/mm3 (0.0-0.8) 01/30/17 05:52 Eos # 0.1 K/mm3 (0.0-0.4) 01/30/17 05:52 Baso # 0.0 K/mm3 (0.0-0.1) 01/30/17 05:52 Seg Neutrophils % 85.2 % (40.0-70.0) H 01/30/17 05:52 Seg Neutrophils # 8.1 K/mm3 (1.8-7.7) H 01/30/17 05:52 PT 16.0 Sec. (12.2-14.9) H 01/30/17 14:35 INR 1.29 (0.87-1.13) H 01/30/17 14:35 APTT 28.0 Sec. (24.2-36.6) 01/29/17 10:14 POC ABG pH 7.387 (7.35-7.45) 01/29/17 08:47 POC ABG pCO2 52.5 (35-45) H 01/29/17 08:47 POC ABG pO2 121 (80-105) H 01/29/17 08:47 POC ABG HCO3 31.5 01/29/17 08:47 POC ABG Total CO2 33 01/29/17 08:47 POC ABG O2 Sat 99 01/29/17 08:47 POC ABG Base Excess 6 01/29/17 08:47 FiO2 30 % 01/29/17 08:47 Sodium 144 mmol/L (137-145) 02/02/17 07:34 Potassium 3.7 mmol/L (3.6-5.0) 02/02/17 07:34 Chloride 102.7 mmol/L (98-107) 02/02/17 07:34 Carbon Dioxide 28 mmol/L (22-30) 02/02/17 07:34 Anion Gap 17 mmol/L 02/02/17 07:34 BUN 16 mg/dL (7-17) 02/02/17 07:34 Creatinine 0.4 mg/dL (0.7-1.2) L 02/02/17 07:34 Estimated GFR > 60 ml/min 02/02/17 07:34 BUN/Creatinine Ratio 40.00 % 02/02/17 07:34 Glucose 93 mg/dL (65-100) 02/02/17 07:34 POC Glucose 72 (70-105) 02/02/17 05:34 Lactic Acid 2.70 mmol/L (0.7-2.0) H* 01/29/17 07:56 Calcium 8.7 mg/dL (8.4-10.2) 02/02/17 07:34 Phosphorus 2.10 mg/dL (2.5-4.5) L 02/01/17 06:06 Magnesium 2.20 mg/dL (1.7-2.3) 02/01/17 06:06 Total Bilirubin 1.00 mg/dL (0.1-1.2) 02/02/17 07:34 Direct Bilirubin 0.3 mg/dL (0-0.2) H 02/02/17 07:34 Indirect Bilirubin 0.7 mg/dL 02/02/17 07:34 AST 75 units/L (5-40) H 02/02/17 07:34 ALT 171 units/L (7-56) H 02/02/17 07:34 Alkaline Phosphatase 192 units/L (35-129) H 02/02/17 07:34 Ammonia 45.0 umol/L (25-60) 01/29/17 13:38 NT-Pro-B Natriuret Pep 55882 pg/mL (0-900) H 01/29/17 07:05 Total Protein 6.8 g/dL (6.3-8.2) 02/02/17 07:34 Albumin 3.4 g/dL (3.9-5) L 02/02/17 07:34 Albumin/Globulin Ratio 1.0 % 02/02/17 07:34 TSH 3.560 mlU/mL (0.270-4.200) 01/30/17 05:52 Free T4 1.27 ng/dL (0.76-1.46) 01/30/17 05:52 Urine Color Red (Yellow) 01/29/17 06:24 Urine Turbidity Cloudy (Clear) 01/29/17 06:24 Urine pH 5.0 (5.0-7.0) 01/29/17 06:24 Ur Specific [place] 1.016 (1.003-1.030) 01/29/17 06:24 Urine Protein >500 mg/dL (Negative) 01/29/17 06:24 Urine Glucose (UA) Neg mg/dL (Negative) 01/29/17 06:24 Urine Ketones Neg mg/dL (Negative) 01/29/17 06:24 Urine Blood Lg (Negative) 01/29/17 06:24 Urine Nitrite Neg (Negative) 01/29/17 06:24 Urine Bilirubin Neg (Negative) 01/29/17 06:24 Urine Urobilinogen 2.0 mg/dL (<2.0) 01/29/17 06:24 Ur Leukocyte Esterase Lg (Negative) 01/29/17 06:24 Urine WBC (Auto) > 182.0 /HPF (0.0-6.0) H 01/29/17 06:24 Urine RBC (Auto) > 182.0 /HPF (0.0-6.0) 01/29/17 06:24 U Epithel Cells (Auto) 3.0 /HPF (0-13.0) 01/29/17 06:24 Urine Bacteria (Auto) 4+ /HPF (Negative) 01/29/17 06:24 Urine WBC Clumps 3+ /HPF 01/29/17 06:24 Urine Yeast (Budding) Few /HPF 01/29/17 06:24 Digoxin 0.4 ng/mL (0.9-2.0) L 01/29/17 09:25 Hepatitis A IgM Ab Non-reactive (NonReactive) 02/02/17 07:34 Hep Bs Antigen Non-reactive (Negative) 02/02/17 07:34 Hep B Core IgM Ab Non-reactive (NonReactive) 02/02/17 07:34 Hepatitis C Antibody Non-reactive (NonReactive) 02/02/17 07:34
[2017-02-03] MEDS: CARDIZEM PO SCH ×4 (00:54→17:47)
[2017-02-03] MEDS: NOVOLOG SUB-Q SCH ×4 (00:55→17:47)
[2017-02-03] MEDS: APRESOLINE IV PRN (06:04)
[2017-02-03 07:07] LABS: Alanine Aminotransferase 120 units/L (7-56); Albumin 2.9 g/dL (3.9-5); Albumin/Globulin Ratio 0.7 %; Alkaline Phosphatase 164 units/L (35-129); Anion Gap 17 mmol/L; Bilirubin,Direct 0.2 mg/dL (0-0.2); Bilirubin,Indirect 0.5 mg/dL; Blood Urea Nitrogen 16 mg/dL (7-17); Calcium 9.3 mg/dL (8.4-10.2); Carbon Dioxide 31 mmol/L (22-30); Chloride 102.5 mmol/L (98-107); Glucose 111 mg/dL (65-100); Potassium 4.2 mmol/L (3.6-5.0); Sodium 146 mmol/L (137-145); Total Protein 6.8 g/dL (6.3-8.2)
[2017-02-03] MEDS: LOPRESSOR FEEDTUBE SCH ×4 (07:55→21:00)
[2017-02-03] MEDS: BABY ASPIRIN FEEDTUBE SCH (10:13)
[2017-02-03] MEDS: VITAMIN C FEEDTUBE SCH (10:13)
[2017-02-03] MEDS: ROCEPHIN/NS 1 GM/50 ML 1 GM/50 ML BAG IV SCH (10:13)
[2017-02-03] MEDS: NAMENDA FEEDTUBE SCH (10:13)
[2017-02-03] MEDS: HEPARIN SUB-Q SCH ×2 (10:14→22:25)
--- NOTE | 2017-02-03 20:29 | Progress Note ---
Assessment and Plan Assessment and plan: 86 years old -[place] female with A. fib, hypertension, diabetes, hyperlipidemia, dementia status post PEG tube placement, brought to ER for an objective fever and worsening mental status 1. Sepsis due to UTI Cultures obtained and started on antibiotics/IV fluids 2. Lactic acidosis Likely due to sepsis 3. Acute respiratory failure Supplemental oxygen, bronchodilators 4. Acute toxic metabolic encephalopathy superimposed on baseline dementia Treat underlying conditions/supportive care 5. Transaminitis No abnormality on US Hepatitis panel neg GI consulted and MRCP ordered, but unobtainable patient cannot cooperate 6. Suspected peritonitis - ruled out 7. Suspected right lower extremity ischemia - rule out based on Doppler and vascular surgery evaluation 8. Diabetes Long-acting insulin along with SSI based on Accu-Cheks 9. A. fib Cardiology consulted and regimen adjusted - digoxin discontinued, on Lopressor and Cardizem along with aspirin; not a candidate for anticoagulation 10. Congestive heart failure - acute on chronic diastolic On BB, CCB per cards recommendation 11. Bilateral hydronephrosis CT showed R stent Neurology recommended systolic and stent exchange (but would like to have cardiology clearance) 12. PEG placement Local care 13. Dementia Nam[place], supportive care 14. Malnutrition Tube feeding per dietitian recommendation 15. GI/DVT prophylaxis History Interval history: nonverbal; no events overnight MRCP unable to be obtained due to motion Hospitalist Physical - Constitutional Vitals: Temp Pulse Resp BP Pulse Ox 98.5 F 87 19 131/70 100 02/03/17 20:06 02/03/17 20:06 02/03/17 20:06 02/03/17 20:06 02/03/17 20:06 General appearance: Present: no acute distress - EENT Eyes: Present: PERRL, EOM intact. Absent: scleral icterus, conjunctival injection - Neck Neck: Present: supple, normal ROM. Absent: masses or JVD - Respiratory Respiratory effort: normal Respiratory: bilateral: CTA, negative: rhonchi, wheezing - Cardiovascular Rhythm: regular Heart Sounds: Present: S1 & S2. Absent: systolic murmur - Extremities Extremities: no ischemia - Abdominal General gastrointestinal: soft, non-tender, non-distended, normal bowel sounds, other (PEG) - Integumentary Integumentary: Present: warm, dry. Absent: jaundice, rash - Psychiatric Psychiatric: no intact judgment & insight, no memory intact - Neurologic Neurologic: moves all extremities Results - Labs CBC & Chem 7: 02/02/17 07:34 02/03/17 06:09 Labs: Laboratory Last Values WBC 6.7 K/mm3 (4.5-11.0) 02/02/17 07:34 RBC 5.37 M/mm3 (3.65-5.03) H 02/02/17 07:34 Hgb 13.2 gm/dl (10.1-14.3) 02/02/17 07:34 Hct 42.5 % (30.3-42.9) 02/02/17 07:34 MCV 79 fl (79-97) 02/02/17 07:34 MCH 25 pg (28-32) L 02/02/17 07:34 MCHC 31 % (30-34) 02/02/17 07:34 RDW 20.0 % (13.2-15.2) H 02/02/17 07:34 Plt Count 157 K/mm3 (140-440) 02/02/17 07:34 Lymph % (Auto) 5.9 % (13.4-35.0) L 01/30/17 05:52 [place] % (Auto) 7.9 % (0.0-7.3) H 01/30/17 05:52 Eos % (Auto) 0.6 % (0.0-4.3) 01/30/17 05:52 Baso % (Auto) 0.4 % (0.0-1.8) 01/30/17 05:52 Lymph # 0.6 K/mm3 (1.2-5.4) L 01/30/17 05:52 [place] # 0.7 K/mm3 (0.0-0.8) 01/30/17 05:52 Eos # 0.1 K/mm3 (0.0-0.4) 01/30/17 05:52 Baso # 0.0 K/mm3 (0.0-0.1) 01/30/17 05:52 Seg Neutrophils % 85.2 % (40.0-70.0) H 01/30/17 05:52 Seg Neutrophils # 8.1 K/mm3 (1.8-7.7) H 01/30/17 05:52 PT 16.0 Sec. (12.2-14.9) H 01/30/17 14:35 INR 1.29 (0.87-1.13) H 01/30/17 14:35 APTT 28.0 Sec. (24.2-36.6) 01/29/17 10:14 POC ABG pH 7.387 (7.35-7.45) 01/29/17 08:47 POC ABG pCO2 52.5 (35-45) H 01/29/17 08:47 POC ABG pO2 121 (80-105) H 01/29/17 08:47 POC ABG HCO3 31.5 01/29/17 08:47 POC ABG Total CO2 33 01/29/17 08:47 POC ABG O2 Sat 99 01/29/17 08:47 POC ABG Base Excess 6 01/29/17 08:47 FiO2 30 % 01/29/17 08:47 Sodium 146 mmol/L (137-145) H 02/03/17 06:09 Potassium 4.2 mmol/L (3.6-5.0) 02/03/17 06:09 Chloride 102.5 mmol/L (98-107) 02/03/17 06:09 Carbon Dioxide 31 mmol/L (22-30) H 02/03/17 06:09 Anion Gap 17 mmol/L 02/03/17 06:09 BUN 16 mg/dL (7-17) 02/03/17 06:09 Creatinine 0.5 mg/dL (0.7-1.2) L 02/03/17 06:09 Estimated GFR > 60 ml/min 02/03/17 06:09 BUN/Creatinine Ratio 32.00 % 02/03/17 06:09 Glucose 111 mg/dL (65-100) H 02/03/17 06:09 POC Glucose 164 (70-105) H 02/03/17 16:27 Lactic Acid 2.70 mmol/L (0.7-2.0) H* 01/29/17 07:56 Calcium 9.3 mg/dL (8.4-10.2) 02/03/17 06:09 Phosphorus 2.10 mg/dL (2.5-4.5) L 02/01/17 06:06 Magnesium 2.20 mg/dL (1.7-2.3) 02/01/17 06:06 Total Bilirubin 0.70 mg/dL (0.1-1.2) 02/03/17 06:09 Direct Bilirubin 0.2 mg/dL (0-0.2) 02/03/17 06:09 Indirect Bilirubin 0.5 mg/dL 02/03/17 06:09 AST 45 units/L (5-40) H 02/03/17 06:09 ALT 120 units/L (7-56) H 02/03/17 06:09 Alkaline Phosphatase 164 units/L (35-129) H 02/03/17 06:09 Ammonia 45.0 umol/L (25-60) 01/29/17 13:38 NT-Pro-B Natriuret Pep 92880 pg/mL (0-900) H 01/29/17 07:05 Total Protein 6.8 g/dL (6.3-8.2) 02/03/17 06:09 Albumin 2.9 g/dL (3.9-5) L 02/03/17 06:09 Albumin/Globulin Ratio 0.7 % 02/03/17 06:09 TSH 3.560 mlU/mL (0.270-4.200) 01/30/17 05:52 Free T4 1.27 ng/dL (0.76-1.46) 01/30/17 05:52 Urine Color Red (Yellow) 01/29/17 06:24 Urine Turbidity Cloudy (Clear) 01/29/17 06:24 Urine pH 5.0 (5.0-7.0) 01/29/17 06:24 Ur Specific [place] 1.016 (1.003-1.030) 01/29/17 06:24 Urine Protein >500 mg/dL (Negative) 01/29/17 06:24 Urine Glucose (UA) Neg mg/dL (Negative) 01/29/17 06:24 Urine Ketones Neg mg/dL (Negative) 01/29/17 06:24 Urine Blood Lg (Negative) 01/29/17 06:24 Urine Nitrite Neg (Negative) 01/29/17 06:24 Urine Bilirubin Neg (Negative) 01/29/17 06:24 Urine Urobilinogen 2.0 mg/dL (<2.0) 01/29/17 06:24 Ur Leukocyte Esterase Lg (Negative) 01/29/17 06:24 Urine WBC (Auto) > 182.0 /HPF (0.0-6.0) H 01/29/17 06:24 Urine RBC (Auto) > 182.0 /HPF (0.0-6.0) 01/29/17 06:24 U Epithel Cells (Auto) 3.0 /HPF (0-13.0) 01/29/17 06:24 Urine Bacteria (Auto) 4+ /HPF (Negative) 01/29/17 06:24 Urine WBC Clumps 3+ /HPF 01/29/17 06:24 Urine Yeast (Budding) Few /HPF 01/29/17 06:24 Digoxin 0.4 ng/mL (0.9-2.0) L 01/29/17 09:25 Hepatitis A IgM Ab Non-reactive (NonReactive) 02/02/17 07:34 Hep Bs Antigen Non-reactive (Negative) 02/02/17 07:34 Hep B Core IgM Ab Non-reactive (NonReactive) 02/02/17 07:34 Hepatitis C Antibody Non-reactive (NonReactive) 02/02/17 07:34
[2017-02-04] MEDS: CARDIZEM PO SCH ×3 (00:50→13:22)
[2017-02-04] MEDS: NOVOLOG SUB-Q SCH ×3 (01:00→13:12)
[2017-02-04 06:16] LABS: Basophils % (Auto) 0.3 % (0.0-1.8); Eosinophils % (Auto) 2.5 % (0.0-4.3); Hematocrit 40.1 % (30.3-42.9); Mean Corpuscular HGB Conc 32 % (30-34); Mean Corpuscular Volume 78 fl (79-97); Platelet Count 152 K/mm3 (140-440); Red Blood Count 5.16 M/mm3 (3.65-5.03); Red Cell Distribution Width 19.1 % (13.2-15.2); White Blood Count 8.1 K/mm3 (4.5-11.0)
[2017-02-04 06:17] LABS: Mean Corpuscular Hemoglobin 25 pg (28-32)
[2017-02-04 06:37] LABS: Albumin 2.8 g/dL (3.9-5); Albumin/Globulin Ratio 0.8 %; Bilirubin,Direct 0.3 mg/dL (0-0.2); Bilirubin,Indirect 0.5 mg/dL; Bilirubin,Total 0.8 mg/dL (0.1-1.2); Total Protein 6.4 g/dL (6.3-8.2)
[2017-02-04] MEDS: HEPARIN SUB-Q SCH (09:04)
[2017-02-04] MEDS: VITAMIN C FEEDTUBE SCH (09:04)
[2017-02-04] MEDS: BABY ASPIRIN FEEDTUBE SCH (09:05)
[2017-02-04] MEDS: ROCEPHIN/NS 1 GM/50 ML 1 GM/50 ML BAG IV SCH (09:05)
[2017-02-04] MEDS: LOPRESSOR FEEDTUBE SCH ×2 (09:06→13:22)
[2017-02-04 12:31] LABS: Anion Gap 15 mmol/L; Blood Urea Nitrogen 20 mg/dL (7-17); Calcium 8.5 mg/dL (8.4-10.2); Carbon Dioxide 29 mmol/L (22-30); Chloride 97.8 mmol/L (98-107); Glucose 135 mg/dL (65-100); Potassium 3.6 mmol/L (3.6-5.0); Sodium 138 mmol/L (137-145)
[2017-02-04] MEDS: NAMENDA FEEDTUBE SCH (13:22)
[2017-02-04 13:28] VITALS: BP 120/58
--- NOTE | 2017-02-04 14:53 | Gastroenterology Progress Note ---
Assessment and Plan Liver: improving LFT's - mass on MRCP discussed w/ radiology, felt old mass that was seen in 2011 and actually now smaller than then, radiology feel no need repeat scan at this time - continue to follow lft's - hemodynamic management per primary team - no need further GI input at this time, call if needed Subjective Date of service: 02/04/17 Principal diagnosis: elevated LFTs Interval history: - no GI complaints overnight Objective - Constitutional Vitals: Temp Pulse Resp BP Pulse Ox 98.5 F 79 22 120/58 98 02/04/17 13:27 02/04/17 13:27 02/04/17 13:27 02/04/17 13:27 02/04/17 13:27 General appearance: no acute distress - Respiratory Respiratory: bilateral: CTA - Cardiovascular Rhythm: regular Heart Sounds: Present: S1 & S2 - Gastrointestinal General gastrointestinal: Present: soft, non-tender - Labs CBC & Chem 7: 02/04/17 05:43 02/04/17 11:41 Labs: Laboratory Results - last 24 hr 02/03/17 02/04/17 02/04/17 16:27 01:12 05:43 WBC 8.1 RBC 5.16 H Hgb 13.0 Hct 40.1 MCV 78 L MCH 25 L MCHC 32 RDW 19.1 H Plt Count 152 Lymph % (Auto) 11.4 L [place] % (Auto) 11.5 H Eos % (Auto) 2.5 Baso % (Auto) 0.3 Lymph # 0.9 L [place] # 0.9 H Eos # 0.2 Baso # 0.0 Seg Neutrophils % 74.3 H Seg Neutrophils # 6.0 Sodium Potassium Chloride Carbon Dioxide Anion Gap BUN Creatinine Estimated GFR BUN/Creatinine Ratio Glucose POC Glucose 164 H 114 H Calcium Total Bilirubin Direct Bilirubin Indirect Bilirubin AST ALT Alkaline Phosphatase Total Protein Albumin Albumin/Globulin Ratio 02/04/17 02/04/17 02/04/17 05:43 07:08 11:41 WBC RBC Hgb Hct MCV MCH MCHC RDW Plt Count Lymph % (Auto) [place] % (Auto) Eos % (Auto) Baso % (Auto) Lymph # [place] # Eos # Baso # Seg Neutrophils % Seg Neutrophils # Sodium 138 D Potassium 3.6 Chloride 97.8 L Carbon Dioxide 29 Anion Gap 15 BUN 20 H Creatinine 0.5 L Estimated GFR > 60 BUN/Creatinine Ratio 40.00 Glucose 135 H POC Glucose 97 Calcium 8.5 Total Bilirubin 0.80 Direct Bilirubin 0.3 H Indirect Bilirubin 0.5 AST 33 ALT 88 H Alkaline Phosphatase 146 H Total Protein 6.4 Albumin 2.8 L Albumin/Globulin Ratio 0.8 02/04/17 13:14 WBC RBC Hgb Hct MCV MCH MCHC RDW Plt Count Lymph % (Auto) [place] % (Auto) Eos % (Auto) Baso % (Auto) Lymph # [place] # Eos # Baso # Seg Neutrophils % Seg Neutrophils # Sodium Potassium Chloride Carbon Dioxide Anion Gap BUN Creatinine Estimated GFR BUN/Creatinine Ratio Glucose POC Glucose 144 H Calcium Total Bilirubin Direct Bilirubin Indirect Bilirubin AST ALT Alkaline Phosphatase Total Protein Albumin Albumin/Globulin Ratio
--- NOTE | 2017-02-04 15:18 | Discharge Summary ---
Providers - Providers Date of Admission: 01/29/17 08:13 Date of discharge: 02/04/17 Attending physician: JIE CUI 01/29/17 08:54 Consult to Physician [CONS] Routine Consulting Provider: KIYA ARREOLA Reason For Exam: ischemic right foot Place consult to:: Russell SALAZAR Notified:: vascular Was contact made?: Yes If yes, spoke with:: wolf Time called:: 14:23 01/29/17 09:01 Consult to Physician [CONS] Routine Consulting Provider: MARIANNE BLACKWOOD Reason For Exam: Elevated LFT, s/p recent peg by you Place consult to:: Dr. 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 She was brought in for altered mental status, fever. In ED, was found to have sepsis due to UTI. She was started on Antibiotics and admitted. CT Abdomen and Ultrasound was done revealing bilateral hydronephrosis, cholelithiasis. She was evaluated by Urologist, GI Physician. She improved slowly on medications. Liver function tests improved. Urology recommended outpatient follow up and stent exchange. She was subsequently discharged home to follow as outpatient. Total time spent on discharge, 42 mins Disposition: [id number] HOME UNDER HOME HLTH - Discharge Diagnoses (1) Sepsis Status: Acute Qualifiers: Sepsis type: S (2) UTI (urinary tract infection) Status: Acute Qualifiers: Urinary tract infection type: acute cystitis Hematuria presence: H Indwelling urinary catheter type: I Encounter type: E (3) Gastrostomy status Status: Chronic (4) Bilateral hydronephrosis Status: Acute (5) Acute on chronic diastolic CHF (congestive heart failure) Status: Acute (6) Chronic atrial fibrillation Status: Chronic (7) Dementia Status: Chronic Qualifiers: Dementia type: Alzheimer's disease Alzheimer's disease onset: A Dementia behavioral disturbance: D (8) Dementia Status: Acute Qualifiers: Dementia type: D Alzheimer's disease onset: A Dementia behavioral disturbance: D Core Measure Documentation - Palliative Care Palliative Care/ Comfort Measures: Not Applicable - Core Measures Any of the following diagnoses?: heart failure, none - Heart Failure Discharge Requirements CAROLINE/ARB for LVSD if EF <40%: Not Applicable Beta liliya at discharge: Yes Exam - Constitutional Vitals: Temp Pulse Resp BP Pulse Ox 98.5 F 79 22 120/58 98 02/04/17 13:27 02/04/17 13:27 02/04/17 13:27 02/04/17 13:27 02/04/17 13:27 General appearance: Present: no acute distress - Respiratory Respiratory effort: normal Respiratory: bilateral: CTA Plan Activity: advance as tolerated Diet: other (Tube feeding) Additional Instructions: 1.Follow up with Dr. Hurd, PCP in 1 week. 2.Follow up with Dr. Aponte, Urology in 1-2 weeks. 3.Follow up with Dr. Wolf Bazan in 1-2 weeks Follow up with: PRIMARY CARE, [Primary Care Provider] - 3-5 Days Prescriptions: AtorvaSTATin [Lipitor] 40 mg PO QHS #30 tablet Ciprofloxacin HCl [Ciprofloxacin TAB] 500 mg PO Q12H #6 tab Diltiazem [Cardizem] 60 mg PO Q6HR #120 tablet Fluconazole [Diflucan TAB] 200 mg FEEDTUBE QDAY #10 tablet Metoprolol [Lopressor TAB] 50 mg FEEDTUBE TID #90 tablet
== END 2017-02-04 17:40 | disposition home health service (06) | DRG 871 ==
LOC: ED 03:48 → CC2 08:13 → 4A 09:46
PROVIDERS: ADMIT Internal Medicine; ATTEND Internal Medicine
PROC: 4A033R1 Measurement of Arterial Saturation, Peripheral, Percutaneous Approach (ICD-10-PCS; principal; 2017-01-29)
DX: A41.9 Sepsis, unspecified organism (principal); J96.00 Acute respiratory failure, unspecified whether with hypoxia or hypercapnia; I50.33 Acute on chronic diastolic (congestive) heart failure; J69.0 Pneumonitis due to inhalation of food and vomit; G92 Toxic encephalopathy; N39.0 Urinary tract infection, site not specified; N13.30 Unspecified hydronephrosis; E46 Unspecified protein-calorie malnutrition; F03.90 Unspecified dementia, unspecified severity, without behavioral disturbance, psychotic disturbance, mood disturbance, and anxiety; E78.5 Hyperlipidemia, unspecified; R74.0 Nonspecific elevation of levels of transaminase and lactic acid dehydrogenase [LDH]; E11.65 Type 2 diabetes mellitus with hyperglycemia; I99.8 Other disorder of circulatory system; I11.0 Hypertensive heart disease with heart failure; E03.9 Hypothyroidism, unspecified; I48.2 Chronic atrial fibrillation; E11.51 Type 2 diabetes mellitus with diabetic peripheral angiopathy without gangrene; Z68.23 Body mass index [BMI] 23.0-23.9, adult; Z79.899 Other long term (current) drug therapy; Z79.82 Long term (current) use of aspirin; Z91.041 Radiographic dye allergy status; Z93.1 Gastrostomy status
CPT/HCPCS: 36415; 36600; 71010; 74176; 74181; 76700; 80048; 80053; 80074; 80162; 81001; 82140; 82803; 82962; 83735; 83880; 84100; 84439; 84443; 85025; 85027; 85610; 85730; 87040; 87086; 93005; 93010; 93925; 96361; 96365; 96372; A9270-GY; J0360; J0696; J1200; J1630; J1644; J1815; J1885; J7030